=== PATIENT | female | born 1975 | race Caucasian/White ===

== ENCOUNTER → 2016-05-14 | Outpatient (CLI) | payer OTHER ==
[2016-05-14 08:56] LABS: ABSOLUTE EOSINOPHILS # (AUTO) 0.3 10^3/uL (0.0-0.6); ABSOLUTE LYMPHOCYTES (AUTO) 1.5 10^3/uL (0.5-4.7); ABSOLUTE MONOCYTES (AUTO) 0.4 10^3/uL (0.1-1.4); ABSOLUTE NEUT (AUTO) 4.7 10^3/uL (1.7-8.2); BASOPHILS % (AUTO) 0.3 % (0-2); EOSINOPHILS % (AUTO) 4.4 % (0-6); HEMATOCRIT 37.9 % (36.0-47.0); HEMOGLOBIN 12.5 g/dL (12.0-15.5); HGB HCT DIFFERENCE -0.4; LYMPHOCYTES % (AUTO) 21.2 % (13-45); MEAN CORPUSCULAR HEMOGLOBIN 29.2 pg (27.0-33.4); MEAN CORPUSCULAR HGB CONC 32.9 g/dL (32.0-36.0); MEAN CORPUSCULAR VOLUME 89 fl (80-97); MONOCYTES % (AUTO) 6.3 % (3-13); RED BLOOD COUNT 4.27 10^6/uL (3.72-5.28); RED CELL DISTRIBUTION WIDTH 15.1 % (11.5-14.0); SEGMENTED NEUTROPHILS % (AUTO) 67.8 % (42-78); WHITE BLOOD COUNT 6.9 10^3/uL (4.0-10.5)
== END ==
LOC: LAB 08:28
PROVIDERS: ATTEND Specialist
DX: Z01.812 Encounter for preprocedural laboratory examination (principal)
CPT/HCPCS: 36415; 85025

== ENCOUNTER 2016-07-09 08:38 | Day surgery (SDC) | payer OTHER ==
--- NOTE | 2016-07-04 12:43 | HISTORY AND PHYSICAL E ---
History and Physical NAME: AZAM BURNHAM : 1975 AGE: 41Y ADMITTED: 07/09/2016 ROOM: CHIEF COMPLAINT: Eosinophilic esophagitis, dysphagia, and reflux. HISTORY OF PRESENT ILLNESS: Patient is known to me. I saw her back on 05/22/15 regarding dysphagia and reflux. SOCIAL HISTORY: Patient does not smoke. Drinks rarely. PAST SURGICAL HISTORY: 1. Upper scope in 2008, question ulcers. 2. Tonsillectomy. 3. Hip fracture. REVIEW OF SYSTEMS: HEAD, EYES, EARS, NOSE, THROAT: Negative. RESPIRATORY: Negative. CARDIAC: Negative. ENDOCRINE: Negative. GASTROINTESTINAL: Dysphagia, reflux, eosinophilic esophagitis. NEUROLOGIC/PSYCHIATRIC: Anxiety and depression. FAMILY HISTORY: Father is alive and well. Mom is alive and well. PHYSICAL EXAMINATION: VITAL SIGNS: Patient's weight 209. Blood pressure 100/70, pulse 80, respirations 20, temperature is 98. HEAD, EYES, EARS, NOSE, THROAT: Normal. ABDOMEN: Soft. NEUROLOGIC: Negative. MEDICATIONS: 1. Cymbalta. 2. Wellbutrin. 3. Ibuprofen. 4. Naproxen. 5. Fish oil. CONCLUSION: 1. Reflux. 2. Dysphagia. 3. History of eosinophilic esophagitis. PLAN: Endoscopy. Consider dilatation pending endoscopy finding. DICTATING PHYSICIAN: CARLOTA GUZMAN M.D. [id number] [facility]#: [id number] ID: [id number] JOB#: [id number] ACCT: [id number] cc:[facility] CARLOTA GUZMAN M.D. >
--- NOTE | 2016-07-04 12:44 | HISTORY AND PHYSICAL E ---
History and Physical NAME: AZAM BURNHAM : 1975 AGE: 41Y ADMITTED: 07/09/2016 ROOM: CHIEF COMPLAINT: Chest pain, exacerbation of reflux, eosinophilic esophagitis. FAMILY HISTORY: Father is alive; mother is alive. REVIEW OF SYSTEMS: ONCOLOGY/HEMATOLOGY: Negative. NEUROPSYCH: Anxiety. GASTROINTESTINAL: Chest pain, reflux, eosinophilic esophagitis. PHYSICAL EXAMINATION: VITAL SIGNS: Blood pressure 100/70, pulse 80, respirations 18, temperature is 98. HEAD, EYES, EARS, NOSE AND THROAT: Normal. ABDOMEN: Soft. NEUROLOGIC EXAM: Negative. HISTORY OF PRESENT ILLNESS: Upper scope, 06/07/2015, was consistent with classic endoscopy finding of eosinophilic esophagitis. Multiple rings. No definite strictures but diffuse esophageal ring. The patient was difficult to sedate. We gave her Versed 4, fentanyl 200. The biopsy shows the following: She has more than 20 per high-powered field compatible with eosinophilic esophagitis. Sed rate was 21. Conclusion: Exacerbation of dysphagia. PAST SURGICAL HISTORY: Tonsillectomy; cyst in right breast. PAST MEDICAL HISTORY: She does have history of left hip fracture. CONCLUSION: Eosinophilic esophagitis. PLAN: 1. Fluticasone. 2. Upper endoscopy. 3. Possible dilatation. DICTATING PHYSICIAN: CARLOTA GUZMAN M.D. [id number] [id number] PHY#: [id number] ID: [id number] JOB#: [id number] ACCT: [id number] cc:CARLOTA GUZMAN M.D. >
[~2016-07-09 08:38] MED LIST: EPINEPHRINE INJ 1 MG/10 ML DISP.SYRIN ONE; FENTANYL CITRATE INJ/PF 100 MCG/2 ML AMPUL ONE; FLUMAZENIL INJ 0.5 MG/5 ML VIAL IV ONE; GLUCAGON,HUMAN RECOMB 1 MG INJ ONE; GLYCOPYRROLATE INJ 0.4 MG/2 ML VIAL ONE; NALOXONE HCL INJ/PF 0.4 MG/1 ML SDV ONE; ONDANSETRON HCL INJ/PF 4 MG/2 ML SDV ONE
[2016-07-09] MEDS: MIDAZOLAM 2 MG/2 ML INJ ONE ×2 (09:28→09:35)
[2016-07-09 10:51] VITALS: BP 99/67
[2016-07-09 10:59] LABS: ABSOLUTE BASOPHILS # (AUTO) 0.1 10^3/uL (0.0-0.2); ABSOLUTE EOSINOPHILS # (AUTO) 0.7 10^3/uL (0.0-0.6); ABSOLUTE MONOCYTES (AUTO) 0.5 10^3/uL (0.1-1.4); ABSOLUTE NEUT (AUTO) 4.5 10^3/uL (1.7-8.2); BASOPHILS % (AUTO) 1.3 % (0-2); HEMATOCRIT 36.2 % (36.0-47.0); HEMOGLOBIN 12.3 g/dL (12.0-15.5); HGB HCT DIFFERENCE 0.7; MEAN CORPUSCULAR HEMOGLOBIN 30.3 pg (27.0-33.4); MEAN CORPUSCULAR HGB CONC 34.1 g/dL (32.0-36.0); MEAN CORPUSCULAR VOLUME 89 fl (80-97); MONOCYTES % (AUTO) 6.7 % (3-13); RED BLOOD COUNT 4.06 10^6/uL (3.72-5.28); RED CELL DISTRIBUTION WIDTH 14.5 % (11.5-14.0); WHITE BLOOD COUNT 7.8 10^3/uL (4.0-10.5)
[2016-07-09 11:24] LABS: ALANINE AMINOTRANSFERASE 33 U/L (9-52); ALBUMIN 4.2 g/dL (3.5-5.0); ALKALINE PHOSPHATASE 70 U/L (38-126); AMYLASE 36 U/L (30-110); ANION GAP 11 (5-19); ASPARTATE AMINO TRANSFERASE 17 U/L (14-36); BILIRUBIN,DIRECT 0.1 mg/dL (0.0-0.4); BILIRUBIN,TOTAL 0.4 mg/dL (0.2-1.3); BLOOD UREA NITROGEN 15 mg/dL (7-20); C-REACTIVE PROTEIN 12.3 mg/L (<10.0); CALCIUM 9.1 mg/dL (8.4-10.2); CARBON DIOXIDE 28 mmol/L (22-30); CHLORIDE 101 mmol/L (98-107); CREATININE RESULT 0.94 mg/dL (0.52-1.25); GLUCOSE 95 mg/dL (75-110); LIPASE 32.7 U/L (23-300); POTASSIUM 4.6 mmol/L (3.6-5.0); TOTAL PROTEIN 6.8 g/dL (6.3-8.2)
[2016-07-09 11:39] LABS: ERYTHROCYTE SEDIMENTATION RATE 17 mm/hr (0-20)
--- NOTE | 2016-07-09 14:56 | DISCHARGE SUMMARY E ---
Discharge Summary NAME: AZAM BURNHAM : 1975 AGE: 41Y ADMITTED: 07/09/2016 DISCHARGED: 07/09/2016 PROCEDURE: 1. EGD. 2. Biopsy. HISTORY AND HOSPITAL COURSE: Patient is 41 years old. I saw her last year in May and she did have eosinophilic esophagitis. She saw utilization review nurse and had seen her recently. She presented to the ER with dysphagia and she is being presented for further evaluation. FINDINGS: Upper scope shows no malignancy. Classic eosinophilic esophagitis with diffuse trabeculation, short esophagus. No definite stricture. Moderate duodenitis. DISCHARGE PLAN: 1. Continue fluticasone inhaler 440 mcg twice daily. 2. Nexium. 3. Discussed diet. 4. Patient saw utilization review nurse. She is to instruct her on foods to avoid in diet, especially the tree nuts, peanuts, and seafood, shells, eggs, and milk. 5. Full liquids. 6. Awaiting biopsy. 7. Followup office visit in the next few days. 8. Activity: Avoid driving today. DICTATING PHYSICIAN: CARLOTA GUZMAN M.D. 1265M 1003 PHY#: [id number] ID: [id number] JOB#: [id number] ACCT: [id number] cc:[facility] CARLOTA GUZMAN M.D. >
--- NOTE | 2016-07-09 16:40 | OPERATIVE REPORT E ---
Operative Report NAME: AZAM BURNHAM : 1975 AGE: 41Y DATE OF SURGERY: 07/09/2016 ROOM: PREOPERATIVE DIAGNOSIS: EOSINOPHILIC ESOPHAGITIS. POSTOPERATIVE DIAGNOSES: 1. EOSINOPHILIC ESOPHAGITIS. 2. DUODENITIS. OPERATION: 1. Esophagoscopy. 2. Gastroscopy. 3. Duodenoscopy. SURGEON: CARLOTA GUZMAN M.D. ANESTHESIA: Sedation, Versed 4, fentanyl 100. TISSUE REMOVED OR ALTERED: Esophageal biopsy. PROCEDURE: Baby scope passed under guided vision no difficulties. There was no definite stricture, but the classic endoscopy sign of eosinophilic esophagitis that is trachealization, multiple rings, burrows all present consistent with diffuse eosinophilic esophagitis with no definite stricture. Scope passed from the EUS to the GE junction with no difficulty and diffuse trachealization. Furrows. Biopsy shows sign of eosinophilic esophagitis "TUG." Gastroscopy, no ulcers, mild gastritis. Duodenoscopy; moderate duodenitis. CONCLUSIONS: Eosinophilic esophagitis. Patient tolerated the procedure well and discharged to her room in stable condition. PLAN: Full-liquid diet, hold aspirin. Continue Nexium. Continue fluticasone inhaler to swallow 440 mcg twice daily. DICTATING PHYSICIAN: CARLOTA GUZMAN M.D. [address]M [id number] [facility]#: [id number] ID: [id number] JOB#: [id number] ACCT: [id number] cc:[facility] CARLOTA GUZMAN M.D. >
== END 2016-07-09 10:55 | disposition home or self-care (01) ==
LOC: END 08:38
PROVIDERS: ATTEND Specialist
PROC: 0DB58ZX Excision of Esophagus, Via Natural or Artificial Opening Endoscopic, Diagnostic (ICD-10-PCS; principal; 2016-07-09 09:00)
DX: K20.0 Eosinophilic esophagitis (principal); K29.80 Duodenitis without bleeding; K29.70 Gastritis, unspecified, without bleeding; K21.9 Gastro-esophageal reflux disease without esophagitis; Z79.899 Other long term (current) drug therapy; Z79.1 Long term (current) use of non-steroidal anti-inflammatories (NSAID)
CPT/HCPCS: 43239; 36415; 82150; 83690; 85025; 85652; 86140; 80053; 88305 ×2; J2250; J3010; J2405; J0171; J1610; J2310; J3490

== ENCOUNTER 2016-12-21 04:36 | Inpatient (IN) | payer OTHER ==
[2016-12-21] MEDS ORDERED: NORMAL SALINE 1000 ML 1,000 ML IV ONE ×2 (04:57→08:07)
[2016-12-21] MEDS ORDERED: ONDANSETRON HCL INJ/PF 4 MG/2 ML SDV IV ONE ×2 (04:58→08:48)
[2016-12-21] MEDS ORDERED: FENTANYL CITRATE INJ/PF 100 MCG/2 ML AMPUL IV ONE (04:58)
--- NOTE | 2016-12-21 04:59 | ER Document Report ---
ED GI/ - General TRAVEL OUTSIDE OF THE [place] IN LAST 30 DAYS: No <CLAU OSORIO - Last Filed: 12/21/16 07:03> <LEIGHTON COLMENARES - Last Filed: 12/21/16 08:09> - General Chief Complaint: Abdominal Pain Stated Complaint: ABDOMINAL PAIN Time Seen by Provider: 12/21/16 04:49 Notes: Patient is a 41-year-old female who comes emergency department for chief complaint of worsening abdominal pain that started this evening, she states she is actually starting to feel it in her lower abdomen. She states that she has not had vomiting but she feels nauseated and she is starting to hurt all over. She denies flank pain, vaginal bleeding or discharge, dysuria. Past medical history of cholecystectomy, she states that after the cholecystectomy she had an ERCP which caused secondary pancreatitis, she states that she ended up with a kidney blockage as well and has a kidney stent. These were all done at [facility]. She is on Flomax, gabapentin, OxyContin. She denies any other medical history. LMP 1 month ago. (CLAU OSORIO) - Related Data Allergies/Adverse Reactions: typhoid vaccine [Typhoid Vaccine] Allergy (Intermediate, Verified 12/21/16 04:39 ) Facial edema and rash Past Medical History - General Information source: Patient - Social History Smoking Status: Never Smoker Frequency of alcohol use: None Drug Abuse: None Lives with: Family Family History: Reviewed & Not Pertinent - Past Medical History Cardiac Medical History: Denies: Hx Coronary Artery Disease, Hx Heart Attack, Hx Hypertension - RUNS LOW Pulmonary Medical History: Denies: Hx Asthma, Hx Bronchitis, Hx COPD, Hx Pneumonia Neurological Medical History: Denies: Hx Cerebrovascular Accident, Hx Seizures Renal/ Medical History: Denies: Hx Peritoneal Dialysis Musculoskeltal Medical History: Denies Hx Arthritis Past Surgical History: Reports: Hx Cholecystectomy, Hx Genitourinary Surgery - right kidneys stent. Denies: Hx Hysterectomy - Immunizations Hx Diphtheria, Pertussis, Tetanus Vaccination: Yes <CLAU OSORIO - Last Filed: 12/21/16 07:03> Review of Systems - Review of Systems Constitutional: No symptoms reported EENT: No symptoms reported Cardiovascular: No symptoms reported Respiratory: No symptoms reported Gastrointestinal: See HPI Genitourinary: See HPI Female Genitourinary: No symptoms reported Musculoskeletal: No symptoms reported Skin: No symptoms reported Hematologic/Lymphatic: No symptoms reported Neurological/Psychological: No symptoms reported <CLAU OSORIO - Last Filed: 12/21/16 07:03> Physical Exam - Vital signs Interpretation: Normal - General General appearance: Alert, Anxious In distress: Mild - Patient appears to be in pain and is generally unwell appearing - HEENT Head: Normocephalic, Atraumatic Eyes: Normal Pupils: PERRL - Respiratory Respiratory status: No respiratory distress Chest status: Nontender Breath sounds: Normal. No: Decreased air movement, Wheezing Chest palpation: Normal - Cardiovascular Rhythm: Regular Heart sounds: Normal auscultation Murmur: No - Abdominal Inspection: Normal Distension: No distension Bowel sounds: Normal Tenderness: Tender - Mild tenderness in the upper abdomen generally, much more significantly tender in the right mid to lower abdomen and at McBurney's point, McBurney's point Organomegaly: No organomegaly - Back Back: Tender, CVA tenderness - Mild CVA tenderness on the right side - Extremities General upper extremity: Normal inspection, Nontender, Normal color, Normal ROM , Normal temperature General lower extremity: Normal inspection, Nontender, Normal color, Normal ROM , Normal temperature, Normal weight bearing. No: Sav's sign - Neurological Neuro grossly intact: Yes Cognition: Normal Orientation: AAOx4 [place] Coma Scale Eye Opening: Spontaneous [place] Coma Scale Verbal: Oriented [place] Coma Scale Motor: Obeys Commands [place] Coma Scale Total: 15 Speech: Normal Motor strength normal: LUE, RUE, LLE, RLE Sensory: Normal - Skin Skin Temperature: Warm Skin Moisture: Dry Skin Color: Normal <CLAU OSORIO - Last Filed: 12/21/16 07:03> - Vital signs Vitals: Resp Pulse Ox 16 99 12/21/16 05:08 12/21/16 05:08 Course - Laboratory Result Diagrams: 12/21/16 05:13 12/21/16 05:13 <CLAU OSORIO - Last Filed: 12/21/16 07:03> - Laboratory Result Diagrams: 12/21/16 05:13 12/21/16 05:13 <LEIGHTON COLMENARES - Last Filed: 12/21/16 08:09> - Re-evaluation Re-evalutation: Patient appears to be significantly uncomfortable on initial exam, she does have what appears to be mild right CVA tenderness, she has tenderness in the upper abdomen generally, she has significant tenderness in the right lower abdomen on examination at McBurney's point. Patient is much more comfortable after pain medication and IV fluids, CAT scan pending. CBC unremarkable, chemistry unremarkable, urinalysis indicates urinary tract infection, most likely pyelonephritis in setting of kidney stent. Giving Rocephin, urine culture sent. Pain coming back, patient re-medicated. She states her blood pressure is always borderline low. Will monitor. Disposition will be based on cat scan and contacting Urology at [facility]. Confirmed and discussed with Dr. Aldridge. (CLAU OSORIO) 12/21/16 07:58 CT shows appendeceal abscess, dr. martinez will see and admit the pt. Explained this to pt, she is up to bathroom. She did say that this pain has been intermittent for several days, the pain rx would help, but worse last night. (LEIGHTON COLMENARES) - Vital Signs Vital signs: Temp Pulse Resp BP Pulse Ox 15 98/61 L 97 12/21/16 07:01 12/21/16 07:01 12/21/16 07:01 - Laboratory Laboratory results interpreted by me: 12/21/16 12/21/16 12/21/16 04:43 05:13 05:13 Hgb 11.5 L Hct 33.4 L RDW 14.4 H Seg Neutrophils % 79.2 H Lymphocytes % 12.7 L Total Protein 6.2 L Urine Blood MODERATE H Ur Leukocyte Esterase LARGE H Discharge <CLAU OSORIO - Last Filed: 12/21/16 07:03> - Discharge Admitting Provider: Surgicalist <LEIGHTON COLMENARES - Last Filed: 12/21/16 08:09> - Discharge Clinical Impression: acute appendeceal abscess Condition: Stable Disposition: ADMITTED INPATIENT
[2016-12-21 05:22] LABS: AMORPHOUS SEDIMENT,URINE 1+ /HPF; APPEARANCE,URINE CLOUDY; BILIRUBIN,URINE NEGATIVE (NEGATIVE); GLUCOSE, URINE NEGATIVE (NEGATIVE); KETONES,URINE NEGATIVE (NEGATIVE); LEUKOCYTE ESTERASE,URINE LARGE (NEGATIVE); NITRITE,URINE NEGATIVE (NEGATIVE); PROTEIN,URINE NEGATIVE (NEGATIVE); URINE SPECIFIC GRAVITY 1.006; UROBILINOGEN,URINE NEGATIVE mg/dL (<2.0)
[2016-12-21 05:25] LABS: ABSOLUTE BASOPHILS # (AUTO) 0.1 10^3/uL (0.0-0.2); ABSOLUTE EOSINOPHILS # (AUTO) 0.2 10^3/uL (0.0-0.6); ABSOLUTE LYMPHOCYTES (AUTO) 1.2 10^3/uL (0.5-4.7); ABSOLUTE MONOCYTES (AUTO) 0.5 10^3/uL (0.1-1.4); ABSOLUTE NEUT (AUTO) 7.6 10^3/uL (1.7-8.2); BASOPHILS % (AUTO) 0.8 % (0-2); HEMATOCRIT 33.4 % (36.0-47.0); HEMOGLOBIN 11.5 g/dL (12.0-15.5); HGB HCT DIFFERENCE 1.1; LYMPHOCYTES % (AUTO) 12.7 % (13-45); MEAN CORPUSCULAR HEMOGLOBIN 29.6 pg (27.0-33.4); MEAN CORPUSCULAR HGB CONC 34.4 g/dL (32.0-36.0); MEAN CORPUSCULAR VOLUME 86 fl (80-97); MONOCYTES % (AUTO) 5.3 % (3-13); RED BLOOD COUNT 3.88 10^6/uL (3.72-5.28); RED CELL DISTRIBUTION WIDTH 14.4 % (11.5-14.0); SEGMENTED NEUTROPHILS % (AUTO) 79.2 % (42-78); WHITE BLOOD COUNT 9.5 10^3/uL (4.0-10.5)
[2016-12-21 05:36] LABS: ALANINE AMINOTRANSFERASE 37 U/L (9-52); ALBUMIN 3.8 g/dL (3.5-5.0); ALKALINE PHOSPHATASE 87 U/L (38-126); ANION GAP 11 (5-19); ASPARTATE AMINO TRANSFERASE 17 U/L (14-36); BILIRUBIN,DIRECT 0.3 mg/dL (0.0-0.4); BILIRUBIN,TOTAL 0.3 mg/dL (0.2-1.3); BLOOD UREA NITROGEN 12 mg/dL (7-20); CALCIUM 9.3 mg/dL (8.4-10.2); CARBON DIOXIDE 29 mmol/L (22-30); CHLORIDE 103 mmol/L (98-107); CREATININE RESULT 0.65 mg/dL (0.52-1.25); GLUCOSE 101 mg/dL (75-110); LIPASE 62.5 U/L (23-300); POTASSIUM 4.2 mmol/L (3.6-5.0); SODIUM 142.6 mmol/L (137-145); TOTAL PROTEIN 6.2 g/dL (6.3-8.2)
[2016-12-21] MEDS ORDERED: HYDROMORPHONE HCL INJ/PF 2 MG/ML AMPULE IV ONE ×3 (05:55→08:48)
[2016-12-21] MEDS ORDERED: CEFTRIAXONE 1 GM/D5W RTU 1 GM/50 ML RTUPB IV ONE (05:55)
--- NOTE | 2016-12-21 07:52 | RADIOLOGY REPORT (SQ) ---
EXAMINATION: POSTCONTRAST ABDOMEN AND PELVIC CT EXAMINATION. REFERRAL DIAGNOSIS: Lower quadrant abdominal pain. COMPARISONS: None PROCEDURE: Using low-dose helical technique, thin section axial images were performed through the abdomen and pelvis after the uncomplicated intravenous administration of nonionic iodinated contrast material. Creatinine equals 0.65. FINDINGS: Right ureteral stent appears in appropriate position. Delayed enhancement and moderate to severe right hydronephrosis. Unenhanced urinary bladder contour is normal. Left kidney is normal. Inflammation in the right lower abdominal quadrant adjacent to the cecum with the abscess cavity measuring 4.9 cm x 4.2 cm in greatest transverse dimension and 8.4 cm in greatest coronal dimension. Suspect this represents appendiceal abscess. No bowel obstruction or extraluminal bowel gas. Sequela of remote cholecystectomy. The liver, spleen, pancreas, stomach, duodenum, adrenal glands and great vessels are normal. Bones are normal. Uterus and ovaries appear grossly normal. IMPRESSION: 1. Inflammation in the right lower abdominal quadrant adjacent to cecum with adjacent large abscess as described above. Suspect this presents sequela of acute appendicitis. 2. Right ureteral stent appears in appropriate position. Findings of partial right urinary system obstruction.
[2016-12-21] MEDS: METRONIDAZOLE 500 MG/NS RTU 100 ML IV SCH ×3 (08:49→23:02)
--- NOTE | 2016-12-21 09:04 | PDOC H&P ---
History of Present Illness Admission Date/PCP: 12/21/16 08:17 Patient complains of: Right lower quadrant pains worse last night associated with nausea History of Present Illness: AZAM BURNHAM is a 41 year old female with history of laparoscopic cholecystectomy in July at the [facility]. Subsequently developed pancreatitis due to common bile duct stone and was at the [facility] in August for 3 weeks. She claims that they tried to drain pancreatic abscess but was unable to do so. Patient has been having off and on abdominal pains for the past several weeks. She is also being followed at the [facility] and she mentions that they will find her on interventional radiologist Last night she complained of severe right lower quadrant pains associated with nausea and went to the emergency room. CT scan of the abdomen revealed a an 8 x 4 x 4.9 x 4.2 cm possible appendiceal abscess. Past Medical History Past Medical History: At the [facility] pancreatitis and had an ERCP and followed by pancreatitis and stayed in the [facility] for 3 weeks in August after a laparoscopic cholecystectomy in July Cardiac Medical History: Denies: Coronary Artery Disease, Myocardial Infarction, Hypertension - RUNS LOW Pulmonary Medical History: Denies: Asthma, Bronchitis, Chronic Obstructive Pulmonary Disease (COPD), Pneumonia Neurological Medical History: Denies: Seizures Endocrine Medical History: Denies: Diabetes Mellitus Type 1, Diabetes Mellitus Type 2 Renal/ Medical History: Denies: End Stage Renal Disease Musculoskeltal Medical History: Denies: Arthritis Hematology: Denies: Anemia Past Surgical History Past Surgical History: Reports: Cholecystectomy, Other - Laparoscopic cholecystectomy in July of this year at the [facility] Denies: Hysterectomy Social History Lives with: Family Smoking Status: Never Smoker Frequency of Alcohol Use: Rare Hx Recreational Drug Use: No - Advance Directive Resuscitation Status: Full Code Family History Family History: Reviewed & Not Pertinent Parental Family History Reviewed: Yes - Unremarkable Children Family History Reviewed: No Sibling(s) Family History Reviewed.: No Medication/Allergy Home Medications: Bupropion HCl [Wellbutrin Xl 300mg 24hr Tablet] 1 tab PO DAILY 06/06/15 Multivit-Min/Iron Fum/Folic AC [Mvdge-Qauhezt-Tsmdyhbo Tablet] 1 each PO ASDIR 06/06/15 Esomeprazole Magnesium [Nexium] 40 mg PO BID 06/07/15 Fluoxetine HCl [Prozac] 80 mg PO DAILY 07/07/16 Allergies/Adverse Reactions: typhoid vaccine [Typhoid Vaccine] Allergy (Intermediate, Verified 12/21/16 04:39 ) Facial edema and rash Review of Systems Constitutional: PRESENT: headache(s) Eyes: PRESENT: other - Denies visual disturbances Ears: PRESENT: other - Denies hearing changes Nose, Mouth, and Throat: PRESENT: other Cardiovascular: PRESENT: other - No chest pains Respiratory: PRESENT: other - No shortness of breath Gastrointestinal: PRESENT: other - No vomiting no diarrhea nor constipation Genitourinary: PRESENT: other - No dysuria Musculoskeletal: PRESENT: other - No joint pains Integumentary: PRESENT: other - No skin rash Neurological: PRESENT: other - No seizures no syncopal episode Psychiatric: PRESENT: anxiety Endocrine: PRESENT: other - No polyuria or polydipsia Hematologic/Lymphatic: PRESENT: other - No easy bruisability or lymph node enlargement Physical Exam Vital Signs: Temp Pulse Resp BP Pulse Ox 15 98/61 L 97 12/21/16 07:01 12/21/16 07:01 12/21/16 07:01 General appearance: PRESENT: mild distress Head exam: PRESENT: atraumatic, normocephalic Eye exam: PRESENT: conjunctiva pink Ear exam: PRESENT: normal external ear exam Mouth exam: PRESENT: moist, tongue midline Neck exam: PRESENT: other - Trachea midline Respiratory exam: PRESENT: clear to auscultation ryan Cardiovascular exam: PRESENT: RRR Pulses: PRESENT: normal femoral pulses Vascular exam: PRESENT: normal capillary refill GI/Abdominal exam: PRESENT: soft, tenderness - Tenderness at the right lower quadrant area Rectal exam: PRESENT: deferred Extremities exam: PRESENT: full ROM Musculoskeletal exam: PRESENT: full ROM Neurological exam: PRESENT: alert, oriented to person, oriented to place, oriented to time, oriented to situation, CN II-XII grossly intact Psychiatric exam: PRESENT: appropriate affect Skin exam: PRESENT: dry, normal color, warm Results Laboratory Results: Normal white count Impressions: Abdomen/Pelvis CT 12/21/16 00:00 IMPRESSION: 1. Inflammation in the right lower abdominal quadrant adjacent to cecum with adjacent large abscess as described above. Suspect this presents sequela of acute appendicitis. 2. Right ureteral stent appears in appropriate position. Findings of partial right urinary system obstruction. Assessment & Plan - Time Time Spent: 30 to 50 Minutes - Inpatient Certification Medical Necessity: Need For IV Fluids, Need for Pain Control, Need for IV Antibiotics, Risk of Complication if Not Cared For in Hospital, Risk of Diagnosis Which Will Require Inpatient Eval/Care/Monitoring, Other - We will need percutaneous drainage of abscess - Plan Summary Plan Summary: #1 start IV antibiotics 2. Keep n.p.o. and hydrate 3. Arrangements being made for percutaneous drainage of a large right lower quadrant abscess presumed to be appendiceal
[2016-12-21] MEDS ORDERED: NORMAL SALINE 1000 ML 500 ML IV ONE (09:07)
[2016-12-21] MEDS ORDERED: DEXTROSE 50%-WATER 25 GM/50 ML DISP.SYRIN IV PRN ×2 (09:54)
[2016-12-21] MEDS ORDERED: DEXTROSE 40% GEL 15 GM TUBE PO PRN ×2 (09:54)
[2016-12-21] MEDS ORDERED: GLUCAGON,HUMAN RECOMB 1 MG INJ SUBCUT PRN (09:54)
[2016-12-21 10:05] LABS: PARTIAL THROMBOPLASTIN TIME 29.2 SEC (23.5-35.8); PROTHROMBIN TIME 13.8 SEC (11.4-15.4)
[2016-12-21] MEDS ORDERED: MIDAZOLAM 2 MG/2 ML INJ ONE (10:57)
[2016-12-21] MEDS ORDERED: FENTANYL CITRATE INJ/PF 100 MCG/2 ML AMPUL ONE ×2 (10:57→11:16)
[2016-12-21] MEDS ORDERED: LIDOCAINE 1% INJ-PF (10 MG/ML) 30 ML SDV ONE (11:43)
[2016-12-21] MEDS ORDERED: HYDROMORPHONE HCL INJ/PF 2 MG/ML AMPULE ONE (13:04)
[2016-12-21] MEDS: PIPERACILLIN SODIUM/TAZOBACTAM 3.375 GM in NORMAL SALINE 100 ML IV SCH ×2 (13:48→18:29)
[2016-12-21] MEDS ORDERED: HYDROMORPHONE HCL INJ/PF 2 MG/ML AMPULE IV PRN (13:49)
[2016-12-21] MEDS: ACETAMINOPHEN 325 MG TABLET PO PRN (19:09)
[2016-12-21] MEDS: HYDROMORPHONE HCL INJ/PF 2 MG/ML AMPULE IV PRN (21:20)
[2016-12-21] MEDS: KETOROLAC TROMETHAMINE INJ/PF 30 MG/1 ML SDV IV SCH (21:20)
[2016-12-22] MEDS: PIPERACILLIN SODIUM/TAZOBACTAM 3.375 GM in NORMAL SALINE 100 ML IV SCH ×5 (00:33→23:36)
[2016-12-22] MEDS: NORMAL SALINE 1000 ML 1,000 ML IV PRN ×2 (00:34→19:37)
[2016-12-22] MEDS: HYDROMORPHONE HCL INJ/PF 2 MG/ML AMPULE IV PRN ×4 (00:43→11:32)
[2016-12-22] MEDS: ACETAMINOPHEN 325 MG TABLET PO PRN (03:35)
[2016-12-22] MEDS: METRONIDAZOLE 500 MG/NS RTU 100 ML IV SCH (05:01)
[2016-12-22] MEDS: KETOROLAC TROMETHAMINE INJ/PF 30 MG/1 ML SDV IV SCH ×3 (06:07→22:03)
[2016-12-22 06:32] LABS: ABSOLUTE BASOPHILS # (AUTO) 0.1 10^3/uL (0.0-0.2); ABSOLUTE EOSINOPHILS # (AUTO) 0.2 10^3/uL (0.0-0.6); ABSOLUTE LYMPHOCYTES (AUTO) 1.1 10^3/uL (0.5-4.7); ABSOLUTE MONOCYTES (AUTO) 0.4 10^3/uL (0.1-1.4); ABSOLUTE NEUT (AUTO) 3.8 10^3/uL (1.7-8.2); BASOPHILS % (AUTO) 0.9 % (0-2); EOSINOPHILS % (AUTO) 2.8 % (0-6); HEMOGLOBIN 9.5 g/dL (12.0-15.5); HGB HCT DIFFERENCE 0.5; LYMPHOCYTES % (AUTO) 19.9 % (13-45); MEAN CORPUSCULAR HEMOGLOBIN 29.7 pg (27.0-33.4); MEAN CORPUSCULAR VOLUME 87 fl (80-97); MONOCYTES % (AUTO) 7.3 % (3-13); RED BLOOD COUNT 3.22 10^6/uL (3.72-5.28); SEGMENTED NEUTROPHILS % (AUTO) 69.1 % (42-78); WHITE BLOOD COUNT 5.6 10^3/uL (4.0-10.5)
[2016-12-22 06:45] LABS: ALANINE AMINOTRANSFERASE 57 U/L (9-52); ALBUMIN 2.7 g/dL (3.5-5.0); ALKALINE PHOSPHATASE 80 U/L (38-126); ANION GAP 8 (5-19); ASPARTATE AMINO TRANSFERASE 42 U/L (14-36); BILIRUBIN,DIRECT 0.3 mg/dL (0.0-0.4); BILIRUBIN,TOTAL 0.3 mg/dL (0.2-1.3); BLOOD UREA NITROGEN 10 mg/dL (7-20); CARBON DIOXIDE 26 mmol/L (22-30); CHLORIDE 108 mmol/L (98-107); CREATININE RESULT 0.63 mg/dL (0.52-1.25); GLUCOSE 90 mg/dL (75-110); LIPASE 29.4 U/L (23-300); POTASSIUM 3.9 mmol/L (3.6-5.0); SODIUM 141.5 mmol/L (137-145); TOTAL PROTEIN 4.8 g/dL (6.3-8.2)
[2016-12-22 06:47] LABS: AMYLASE < 30 U/L (30-110)
[2016-12-22] MEDS: ONDANSETRON HCL INJ/PF 4 MG/2 ML SDV IV PRN (08:40)
--- NOTE | 2016-12-22 09:28 | PDOC PROGRESS REPORT ---
Subjective Progress Note for:: 12/22/16 Subjective:: According to the patient she has been dealing with pain since July 2016 after laparoscopic cholecystectomy, complicated by retained common bile duct stone, status post ERCP complicated by postprocedure pancreatitis. Apparently she had a ureteral stent placed on the right side for unclear reasons. Been followed by general surgery and urology at [facility]. She was slated to see a surgeon at [address] regarding management of pancreatic pseudocyst which is been followed radiographically according to patient report. The patient came to the emergency department yesterday because of pain. She denies nausea vomiting or change in her bowel habits recently. She is now having some loose stools. Been off antibiotics. She denies fever. Imaging studies on admission yesterday showed a right oriented fluid collection which underwent percutaneous drainage with evacuation approximately 40 cc of prescription old bloody fluid. Fluid sent for culture, Gram stain and sensitivity. Drainage minimal at this time. Patient's pain complex is about the same. She has been on narcotics for the last 5 months continuously. Physical Exam Vital Signs: Temp Pulse Resp BP Pulse Ox 98.4 F 48 L 15 95/56 L 98 12/22/16 08:35 12/22/16 08:35 12/22/16 08:35 12/22/16 08:35 12/22/16 08:35 Intake & Output 12/21/16 12/22/16 12/23/16 06:59 06:59 06:59 Intake Total 1525 Output Total 1700 Balance -175 General appearance: PRESENT: other - Very sleepy GI/Abdominal exam: PRESENT: other - Abdomen is soft not distended. Percutaneous drain entering the abdomen anteriorly appears to be in satisfactory position Results Laboratory Results: 12/22/16 06:14 12/22/16 06:14 12/22/16 12/22/16 06:14 06:14 WBC 5.6 RBC 3.22 L Hgb 9.5 L Hct 28.0 L MCV 87 MCH 29.7 MCHC 34.0 RDW 15.0 H Plt Count 181 Seg Neutrophils % 69.1 Lymphocytes % 19.9 Monocytes % 7.3 Eosinophils % 2.8 Basophils % 0.9 Absolute Neutrophils 3.8 Absolute Lymphocytes 1.1 Absolute Monocytes 0.4 Absolute Eosinophils 0.2 Absolute Basophils 0.1 Sodium 141.5 Potassium 3.9 Chloride 108 H Carbon Dioxide 26 Anion Gap 8 BUN 10 Creatinine 0.63 Est GFR ( Amer) > 60 Est GFR (Non-Af Amer) > 60 Glucose 90 Calcium 8.0 L Total Bilirubin 0.3 AST 42 H ALT 57 H Alkaline Phosphatase 80 Total Protein 4.8 L Albumin 2.7 L Amylase < 30 L Lipase 29.4 Impressions: Abdomen/Pelvis CT 12/21/16 00:00 IMPRESSION: 1. Inflammation in the right lower abdominal quadrant adjacent to cecum with adjacent large abscess as described above. Suspect this presents sequela of acute appendicitis. 2. Right ureteral stent appears in appropriate position. Findings of partial right urinary system obstruction. Surgeon's note: I reviewed the images independently and in conjunction with Dr. Barajas, radiologist. The patient now has [address] 1 chronic right renal stent which appears to be in satisfactory position with mild hydroureter; now patient has a tense abdominal drain described above. Some of the sideholes are out of the fluid cavity. This is a thin-walled cystic collection. No oral or IV contrast in it. There is no evidence of intestinal obstruction. Assessment & Plan - Diagnosis (1) Intra-abdominal fluid collection Is this a current diagnosis for this admission?: Yes Plan: The impression today is the patient has a chronic fluid collection drained percutaneously with serologies and microbiology pending. Patient's history of post ERCP pancreatitis with cyst formation, believe the currently draining fluid collection may in fact be residual pseudocyst. Clinically the collection does not appear to be related to the cecum or ascending colon. Plan: 1. Start patient on a diet, stool softener 2. As the patient does not appear septic, will wean antibiotics off; we are stopping Flagyl today 3. Patient is narcotic dependent; we will solicit consultation from pain management colleagues 4. I spoke with Dr. Barajas, radiologist regarding drain management. Pending culture and results of the fluid collection, if no contraindications, a pull the drain tomorrow.
[2016-12-22] MEDS: DOCUSATE SODIUM 100 MG CAPSULE PO SCH ×2 (11:18→18:48)
[2016-12-22] MEDS ORDERED: HYDROMORPHONE HCL INJ/PF 2 MG/ML AMPULE IV ONE (13:30)
[2016-12-22] MEDS: HYDROMORPHONE HCL 2 MG TABLET PO PRN ×2 (14:39→19:34)
--- NOTE | 2016-12-22 15:03 | CONSULTATION REPORT E ---
Consultation Report NAME: AZAM BURNHAM : 1975 AGE: 41Y DATE: 12/22/2016 213 B TO: AUREA WEEKS M.D. FROM: MAHNAZ SAMUELS Requesting Physician Consultation request by Dr. Valdivia, general surgery. REASON FOR CONSULTATION: Narcotic dependency, [id number] abdominal pain on presentation. CHIEF COMPLAINT: Right lower quadrant pain. HISTORY OF PRESENT ILLNESS: The patient is a 41-rhonda-old female with prior history of laparoscopic cholecystectomy back in July of 2016 at the [facility] who subsequently developed pancreatitis secondary to common bile duct stone impaction and was hospitalized for weeks during August. Patient notes that she has had chronic abdominal pain ever since and has been told that she has a pancreatic abscess that needed to be drained. She has been having on and off abdominal pain for the past several weeks and is currently under pain management with [facility] with Dr. Daniels. She is on chronic opioid therapy through her pain clinic along with multimodal analgesia with gabapentin and NSAIDs and standing Tylenol. She is on 30 mg of OxyContin b.i.d. and recently received a breakthrough pain medication script on December 12 per the database for hydromorphone 2 mg 4-6 hours p.r.n. acute pain. With regards to her workup for her pancreatic pseudocyst, she was scheduled to be seen by a surgeon in [place] but on 12/20/16, she started having severe right lower quadrant pain with nausea and presented to the [place] [facility]. She had a CT scan revealing a possible appendiceal abscess and a drain was placed on 12/21/16. Patient notes minor improvement in her new right lower quadrant pain, status post exacerbation but persistent chronic right lower quadrant abdominal pain diffuse with no specific trigger, dull and achy at times. Improved with pain medication. Patient denies any side effects from her opioid such as nausea, vomiting, itching, constipation, or sedation. She states that she has not had her long acting medication since Thursday and feels that the IV medication is not appropriately covering her pain as she is behind on her pain control. She states that she is uncertain what her next surgical step is. She notes prior relief with the hydromorphone p.r.n. for acute exacerbation. She denies any history of illicit drug use. PAST MEDICAL HISTORY: Of note, gallstone pancreatitis, status post laparoscopic cholecystectomy. PAST SURGICAL HISTORY: Above, cholecystectomy. SOCIAL HISTORY: Denies smoking. Denies alcohol. Denies illicits. FAMILY HISTORY: Noncontributory. MEDICATIONS: At home she is on gabapentin for pain medication 300 mg in the morning and 600 mg at night. She has been on and off Celebrex. She is on OxyContin 30 mg p.o. b.i.d. She is on Tylenol 975 mg q.8 hours. She notes Prozac as well 80 mg p.o. daily and omeprazole 40 mg p.o. b.i.d. Bupropion 300 mg 1 tab daily. ALLERGIES: TYPHOID VACCINE. REVIEW OF SYSTEMS: Otherwise unchanged from history and physical from Dr. Schuyler Kendrick on 12/21/16 and confirmed with patient. PHYSICAL EXAMINATION: GENERAL APPEARANCE: Resting, lying in bed in no distress. HEAD: Normocephalic, atraumatic. ORAL: Tongue midline. Oral mucosa wet. NECK: Supple. RESPIRATORY: Clear to auscultation bilaterally. CARDIOVASCULAR: Regular rate and rhythm. ABDOMEN: Mild, soft, tenderness in the right lower quadrant area. Drain in place. No rebound tenderness. EXTREMITIES: Warm and well perfused with full range of motion. NEUROLOGIC: Alert and oriented x3. Cranial nerves II-XII intact grossly intact. Moving all extremities x4. PSYCHIATRIC: Appropriate affect and mood. DIAGNOSTIC DATA: Results pending, drainage with drain placement gram stain and culture pending. Abdominal/pelvic CT per H and P showing inflammation of the right lower quadrant. ASSESSMENT: 1. [id number] exacerbation of right lower quadrant abdominal pain. 2. Chronic pain syndrome. 3. Opioid dependence. PLAN: 1. We will continue Tylenol 650 mg p.r.n. 4 hours pain. 2. We will convert her IV hydromorphone after a single dose now at 0.5 mg to oral hydromorphone 2 mg every 4-6 hours p.r.n. pain. 3. We will restart oxycodone extended release 30 mg p.o. b.i.d. starting this evening for her long acting medication. 4. We will resume her gabapentin 300 mg in the morning and 600 mg at night. 5. We will continue her ketorolac for 48 hours, she is off her NSAIDs. 6. We will contact her primary pain management doctor at [facility] with Dr. Daniels to confirm appropriate outpatient discharge once drain is removed and patient is discharged. We will provide if necessary a 3-day script of hydromorphone IR since she has already her filled her [place] oxycodone [facility] the [facility] on 12/17/16. Thank you for the consultation. We will follow along in the background. With any questions or concerns, please let us know. DICTATING PHYSICIAN: AUREA WEEKS M.D. [id number] PHY#: [id number] ID: [id number] JOB#: [id number] ACCT: [id number] cc:AUREA WEEKS M.D. > MTDD
--- NOTE | 2016-12-22 17:52 | RADIOLOGY REPORT (SQ) ---
EXAM DESCRIPTION: CT FLUID DRAINAGE WITH CATH COMPLETED DATE/TIME: 12/21/2016 12:32 pm REASON FOR STUDY: RLQ ABCESS DUE TO APPY COMPARISON: CT done earlier the same day. FLUORO TIME: 8.0 seconds LIMITATIONS: None. PROCEDURE: After obtaining informed consent, the patient was brought to the CT suite and was placed supine on the CT gurney. The patient was prepped and draped in the usual sterile fashion . Axial kourtney ges were obtained for targeting of theright lower quadrant abscess. An appropriate access site was se lected. IV sedation was administered and physician direction by the registered nurse using 1.5 millig izaiah of Versed and 200 micrograms of fentanyl. Physiologic monitoring was provided before, during, an d after sedation. The total sedation time was [address] fluoroscopic guidance the fluid collection in the right lower quadrant was cannulated. A gu idewire was placed. Sequential dilatation performed and an 8 Tamazight APD catheter placed. Purulent f luid was aspirated and sent for evaluation. The catheter was secured to the skin. There were no com plications. IMPRESSION: Successful CT-guided drain placement for abscess in the right lower quadrant. COMMENT: Patient medication list reviewed: Yes- PQRS G8427:Eligible professional attests to document ing in the medical record they obtained, updated, or reviewed the patient's current medications.. PQRS 6030F: The patient was prepped and draped using maximum sterile barrier technique including cap , mask, sterile gown, sterile globes, a large sterile sheet, hand hygiene, and 2% Chlorhexidine for c utaneous antisepsis. PQRS 6006F: Fluoroscopy time of the procedure is documented in the report. TECHNICAL DOCUMENTATION: JOB ID: [id number] [employer]- All Rights Reserved
[2016-12-22] MEDS: GABAPENTIN 300 MG CAPSULE PO SCH (22:01)
[2016-12-22] MEDS: OXYCODONE HCL SR 10 MG TABLET PO SCH (22:01)
[2016-12-23] MEDS: HYDROMORPHONE HCL 2 MG TABLET PO PRN ×5 (04:15→23:17)
[2016-12-23] MEDS: KETOROLAC TROMETHAMINE INJ/PF 30 MG/1 ML SDV IV SCH ×3 (05:13→21:34)
[2016-12-23] MEDS: PIPERACILLIN SODIUM/TAZOBACTAM 3.375 GM in NORMAL SALINE 100 ML IV SCH ×4 (05:14→23:17)
[2016-12-23] MEDS: NORMAL SALINE 1000 ML 1,000 ML IV PRN (05:22)
[2016-12-23] MEDS: ACETAMINOPHEN 325 MG TABLET PO PRN (07:42)
[2016-12-23] MEDS: GABAPENTIN 300 MG CAPSULE PO SCH ×2 (08:19→21:35)
[2016-12-23] MEDS: OXYCODONE HCL SR 10 MG TABLET PO SCH ×2 (11:31→21:36)
[2016-12-23] MEDS: DOCUSATE SODIUM 100 MG CAPSULE PO SCH ×2 (11:32→19:05)
[2016-12-23] MEDS ORDERED: FLUCONAZOLE 400 MG/NS RTU 400 MG/200 ML RTUPB IV ONE (15:00)
[2016-12-23] MEDS ORDERED: TAMSULOSIN HCL 0.4 MG CAP.SR.24H PO SCH (17:00)
--- NOTE | 2016-12-23 18:25 | PDOC CONSULTATION ---
Consultation Consult Date: 12/23/16 Attending physician:: SHERWIN BATISTA Consult reason:: Inna growing in an abscess. History of Present Illness Admission Date/PCP: 12/21/16 09:54 History of Present Illness: 41-year-old female who in July of this year had gallstones underwent a cholecystectomy. She had a retained common bile duct stone and had an ERCP. Patient developed pancreatitis after the ERCP. She then had the complication of having multiple pseudocyst. The patient was eventually transferred to [facility] for tertiary care. At that time there was concern that she had an infected pseudocyst and was treated empirically with broad-spectrum antibiotics as well as Diflucan. She clinically improved. They did not drain the cyst at that time because of the location was felt to be too difficult. She has had problems with chronic pain since then and has been on OxyContin. The patient also has had problems with right-sided hydronephrosis and had a ureteral stent placed. The patient presented to our hospital after 2 day history of worsening right lower quadrant pain. CT she was found to have a 4 x 8 cm mass around the appendix. Initially it was thought to possibly represent a ruptured appendicitis with abscess formation. Radiology placed a drain in with drainage of some bloody fluid. It was felt to most likely not be related to the appendix after this. The patient has grown out Inna from the wound culture. She also is growing out Inna from a urine culture. We have been asked to address management of the Inna from an abscess. Past Medical History Cardiac Medical History: Denies: Coronary Artery Disease, Myocardial Infarction, Hypertension - RUNS LOW Pulmonary Medical History: Denies: Asthma, Bronchitis, Chronic Obstructive Pulmonary Disease (COPD), Pneumonia Neurological Medical History: Denies: Seizures Endocrine Medical History: Denies: Diabetes Mellitus Type 1, Diabetes Mellitus Type 2 Renal/ Medical History: Denies: End Stage Renal Disease Malignancy Medical History: Reports: None GI Medical History: Reports: None Musculoskeltal Medical History: Denies: Arthritis Psychiatric Medical History: Reports: Depression Hematology: Denies: Anemia Past Surgical History Past Surgical History: Reports: Cholecystectomy, Other - Laparoscopic cholecystectomy in July of this year at the Denies: Hysterectomy Social History Information Source: Patient Lives with: Family Smoking Status: Never Smoker Frequency of Alcohol Use: Occasional Hx Recreational Drug Use: No Drugs: None Hx Prescription Drug Abuse: No - Advance Directive Resuscitation Status: Full Code Family History Family History: Mother is 58 alive and healthy. Father 62 alive and healthy. Parental Family History Reviewed: Yes Children Family History Reviewed: No Sibling(s) Family History Reviewed.: No Medication/Allergy Home Medications: Acetaminophen [Tylenol 325 mg Tablet] 975 mg PO BID 12/21/16 Bupropion HCl [Wellbutrin Xl 300mg 24hr Tablet] 300 mg PO DAILY 12/21/16 Fluoxetine HCl [Prozac] 80 mg PO DAILY 12/21/16 Gabapentin [Neurontin 300 mg Capsule] 300 mg PO DAILY 12/21/16 Gabapentin [Neurontin 300 mg Capsule] 600 mg PO QHS 12/21/16 Oxycodone HCl [Oxycontin] 10 mg PO Q12 12/21/16 Oxycodone HCl [Oxycontin] 20 mg PO Q12 12/21/16 Sucralfate [Carafate 1 gm Tablet] 1 gm PO BID 12/21/16 Tamsulosin HCl [Flomax 0.4 mg Cap.sr] 0.4 mg PO DAILY 12/21/16 Allergies/Adverse Reactions: typhoid vaccine [Typhoid Vaccine] Allergy (Intermediate, Verified 12/21/16 04:39 ) Facial edema and rash Review of Systems Constitutional: ABSENT: chills, fever(s), headache(s), weight gain, weight loss Eyes: ABSENT: visual disturbances Ears: ABSENT: hearing changes Cardiovascular: ABSENT: chest pain, dyspnea on exertion, edema, orthropnea, palpitations Respiratory: ABSENT: cough, hemoptysis Gastrointestinal: PRESENT: as per HPI, abdominal pain Genitourinary: ABSENT: dysuria, hematuria Musculoskeletal: ABSENT: joint swelling Integumentary: ABSENT: rash, wounds Neurological: ABSENT: abnormal gait, abnormal speech, confusion, dizziness, focal weakness, syncope Psychiatric: ABSENT: anxiety, depression Endocrine: ABSENT: cold intolerance, heat intolerance, polydipsia, polyuria Hematologic/Lymphatic: ABSENT: easy bleeding, easy bruising Physical Exam Vital Signs: Temp Pulse Resp BP Pulse Ox 98.7 F 50 L 16 87/45 L 93 12/23/16 08:15 12/23/16 08:15 12/23/16 08:15 12/23/16 08:15 12/23/16 08:15 Intake & Output 12/22/16 12/23/16 12/24/16 06:59 06:59 06:59 Intake Total 1525 2565 Output Total 1700 3030 Balance -175 -465 Weight 88.2 kg General appearance: PRESENT: no acute distress, well-developed, well-nourished Head exam: PRESENT: atraumatic, normocephalic Eye exam: PRESENT: conjunctiva pink, EOMI, PERRLA. ABSENT: scleral icterus Ear exam: PRESENT: normal external ear exam Mouth exam: PRESENT: moist, tongue midline Neck exam: ABSENT: carotid bruit, JVD, lymphadenopathy, thyromegaly Respiratory exam: PRESENT: clear to auscultation ryan. ABSENT: rales, rhonchi, wheezes Cardiovascular exam: PRESENT: RRR. ABSENT: diastolic murmur, rubs, systolic murmur Pulses: PRESENT: normal dorsalis pedis pul Vascular exam: PRESENT: normal capillary refill GI/Abdominal exam: PRESENT: other - Drain in place in the right lower quadrant. Extremities exam: ABSENT: calf tenderness, clubbing, pedal edema Neurological exam: PRESENT: alert, awake, oriented to person, oriented to place , oriented to time, oriented to situation, CN II-XII grossly intact. ABSENT: motor sensory deficit Psychiatric exam: PRESENT: appropriate affect Skin exam: PRESENT: dry, intact, warm. ABSENT: cyanosis, rash Results Laboratory Results: 12/22/16 06:14 12/22/16 06:14 Impressions: Abdomen/Pelvis CT 12/21/16 00:00 IMPRESSION: 1. Inflammation in the right lower abdominal quadrant adjacent to cecum with adjacent large abscess as described above. Suspect this presents sequela of acute appendicitis. 2. Right ureteral stent appears in appropriate position. Findings of partial right urinary system obstruction. Drainage Catheter Insertion 12/21/16 00:00 IMPRESSION: Successful CT-guided drain placement for abscess in the right lower quadrant. Assessment & Plan - Diagnosis (1) Inna albicans infection Is this a current diagnosis for this admission?: Yes Plan: Patient has an abscess in the right lower quadrant growing Inna. Will change from Diflucan to micafungin. Patient had previously been treated with Diflucan at [facility]. Will check blood cultures to make certain that she does not have Inna in the bloodstream. This case was discussed with the infectious disease senior analytic consultant data virtualization consultant at [facility]. Will leave the drain in place for now. The possibility of this being a communicating with the right ureter is considered. She is growing Inna from her urine culture. Urology has been consulted to evaluate the right ureteral stent. (2) Hydronephrosis Is this a current diagnosis for this admission?: Yes Plan: Urology has been consulted. (3) Depression Is this a current diagnosis for this admission?: Yes Plan: Continue with Wellbutrin and Prozac. (4) Chronic pain Is this a current diagnosis for this admission?: Yes Plan: Continue with OxyContin. (5) Intra-abdominal fluid collection Is this a current diagnosis for this admission?: Yes Plan: This was initially thought to possibly be a ruptured appendix however it looks like this is not related to the appendix at all. (6) Urinary tract infection Qualifiers: Urinary tract infection type: site unspecified Hematuria presence: without hematuria Qualified Code(s): N39.0 - Urinary tract infection, site not specified Is this a current diagnosis for this admission?: Yes Plan: The patient is growing Inna from her urine. - Time Time Spent: 50 to 70 Minutes - Inpatient Certification Medical Necessity: Need for IV Antibiotics - Plan Summary Plan Summary: We will assume care from the surgical service and be the primary attending for this patient.
[2016-12-23] MEDS: TAMSULOSIN HCL 0.4 MG CAP.SR.24H PO SCH (18:55)
--- NOTE | 2016-12-23 19:40 | PDOC PROGRESS REPORT ---
Subjective Progress Note for:: 12/23/16 Subjective:: Pains along the drain on the RLQ Physical Exam Vital Signs: Temp Pulse Resp BP Pulse Ox 98.7 F 50 L 16 87/45 L 93 12/23/16 08:15 12/23/16 08:15 12/23/16 08:15 12/23/16 08:15 12/23/16 08:15 Intake & Output 12/22/16 12/23/16 12/24/16 06:59 06:59 06:59 Intake Total 1525 2565 Output Total 1700 3030 Balance -175 -465 Weight 88.2 kg Exam: Positive tenderness along the right lower quadrant no rebound Results Laboratory Results: 12/22/16 06:14 12/22/16 06:14 Impressions: Abdomen/Pelvis CT 12/21/16 00:00 IMPRESSION: 1. Inflammation in the right lower abdominal quadrant adjacent to cecum with adjacent large abscess as described above. Suspect this presents sequela of acute appendicitis. 2. Right ureteral stent appears in appropriate position. Findings of partial right urinary system obstruction. Drainage Catheter Insertion 12/21/16 00:00 IMPRESSION: Successful CT-guided drain placement for abscess in the right lower quadrant. Assessment & Plan - Diagnosis (1) History of pancreatitis Is this a current diagnosis for this admission?: Yes Plan: Appears to have associated cyst along the right lower quadrant that was drained on admission last 12/21/2016 Culture of the drainage revealed Inna albicans as well as a urine RECEIVING CLERK. (2) Appendiceal abscess Is this a current diagnosis for this admission?: No - Time Time Spent with patient: 25-34 minutes - Plan Summary Plan Summary: The plan is to consult hospitalist because of the Inna albicans culture from the urine and from the pseudocyst cavity. I also reviewed and discussed the films with Dr. Barajas who suggested removal of the drain if does not have any positive cultures. Since patient has positive Inna albicans infection of the urine and she did caps she had she had a cyst I have given the patient a dose of Diflucan. Also I have consulted hospitalist. Hospitalist claims the patient will need more long-term IV anti-fungal medication. He apparently discuss it or he reviewed the the patient's history from the [facility]. I will then leave the drain in place for the time being. I will transfer the patient to the hospitalist service but surgery will continue to follow her.
[2016-12-23] MEDS: BUPROPION HCL 100 MG TABLET PO SCH (21:36)
[2016-12-23] MEDS: MICAFUNGIN SODIUM 100 MG in NORMAL SALINE 100 ML IV SCH (21:50)
[2016-12-24] MEDS: HYDROMORPHONE HCL 2 MG TABLET PO PRN ×4 (04:51→19:52)
[2016-12-24] MEDS: BUPROPION HCL 100 MG TABLET PO SCH ×3 (05:02→22:48)
[2016-12-24] MEDS: PIPERACILLIN SODIUM/TAZOBACTAM 3.375 GM in NORMAL SALINE 100 ML IV SCH ×4 (05:02→23:01)
[2016-12-24] MEDS: KETOROLAC TROMETHAMINE INJ/PF 30 MG/1 ML SDV IV SCH ×3 (05:02→22:49)
[2016-12-24] MEDS: GABAPENTIN 300 MG CAPSULE PO SCH ×2 (07:38→22:47)
[2016-12-24] MEDS: FLUOXETINE HCL 20 MG CAPSULE PO SCH (09:21)
[2016-12-24] MEDS: OXYCODONE HCL SR 10 MG TABLET PO SCH ×2 (09:21→22:48)
[2016-12-24] MEDS: DOCUSATE SODIUM 100 MG CAPSULE PO SCH ×2 (09:25→17:41)
--- NOTE | 2016-12-24 10:40 | PDOC PROGRESS REPORT ---
Subjective Progress Note for:: 12/24/16 Subjective:: Complains of pain in the right lower quadrant. No worse than yesterday. Physical Exam Vital Signs: Temp Pulse Resp BP Pulse Ox 97.9 F 62 16 95/49 L 98 12/24/16 07:20 12/24/16 07:20 12/24/16 07:20 12/24/16 07:20 12/24/16 07:20 Intake & Output 12/23/16 12/24/16 12/25/16 06:59 06:59 06:59 Intake Total 2565 Output Total 3030 5 Balance -465 -5 Weight 88.2 kg 88 kg General appearance: PRESENT: no acute distress Eye exam: PRESENT: conjunctiva pink. ABSENT: scleral icterus Neck exam: ABSENT: JVD Respiratory exam: PRESENT: clear to auscultation ryan. ABSENT: rales, rhonchi, wheezes Cardiovascular exam: PRESENT: RRR. ABSENT: diastolic murmur, rubs, systolic murmur GI/Abdominal exam: PRESENT: normal bowel sounds, soft, tenderness - Right lower quadrant., other - Drain in place in the right lower quadrant.. ABSENT: distended, guarding, mass, organolmegaly, rebound Extremities exam: ABSENT: calf tenderness, clubbing, pedal edema Neurological exam: PRESENT: alert, awake, oriented to person, oriented to place , oriented to time, oriented to situation, CN II-XII grossly intact. ABSENT: motor sensory deficit Psychiatric exam: PRESENT: appropriate affect Skin exam: PRESENT: dry, intact, warm. ABSENT: cyanosis, rash Results Laboratory Results: 12/22/16 06:14 12/22/16 06:14 Impressions: Abdomen/Pelvis CT 12/21/16 00:00 IMPRESSION: 1. Inflammation in the right lower abdominal quadrant adjacent to cecum with adjacent large abscess as described above. Suspect this presents sequela of acute appendicitis. 2. Right ureteral stent appears in appropriate position. Findings of partial right urinary system obstruction. Drainage Catheter Insertion 12/21/16 00:00 IMPRESSION: Successful CT-guided drain placement for abscess in the right lower quadrant. Assessment & Plan - Diagnosis (1) Inna albicans infection Is this a current diagnosis for this admission?: Yes Plan: Patient has an abscess in the right lower quadrant growing Inna. Continue with drain. Antifungal treatment was changed from Diflucan to micafungin. Patient had previously been treated with Diflucan at [facility]. She is growing Inna from her urine culture. Urology has been consulted to evaluate the right ureteral stent. (2) Hydronephrosis Is this a current diagnosis for this admission?: Yes Plan: Urology has been consulted. (3) Depression Is this a current diagnosis for this admission?: Yes Plan: Continue with Wellbutrin and Prozac. (4) Chronic pain Is this a current diagnosis for this admission?: Yes Plan: Continue with OxyContin. (5) Intra-abdominal fluid collection Is this a current diagnosis for this admission?: Yes Plan: This was initially thought to possibly be a ruptured appendix however it looks like this is not related to the appendix at all. (6) Urinary tract infection Qualifiers: Urinary tract infection type: site unspecified Hematuria presence: without hematuria Qualified Code(s): N39.0 - Urinary tract infection, site not specified Is this a current diagnosis for this admission?: Yes Plan: The patient is growing Inna from her urine. - Time Time Spent with patient: 25-34 minutes - Inpatient Certification Medical Necessity: Need for IV Antibiotics
[2016-12-24] MEDS: NORMAL SALINE 1000 ML 1,000 ML IV PRN ×2 (11:11→19:53)
--- NOTE | 2016-12-24 13:33 | PDOC CONSULTATION ---
Consultation Consult Date: 12/24/16 Consult reason:: Right ureteral stent, candidal cystitis History of Present Illness Admission Date/PCP: 12/21/16 09:54 Patient complains of: Right lower quadrant discomfort History of Present Illness: 41-year-old female who in July of this year had gallstones underwent a cholecystectomy. She had a retained common bile duct stone and had an ERCP. Patient developed pancreatitis after the ERCP. She then had the complication of having multiple pseudocyst. The patient was eventually transferred to [place] for tertiary care. At that time there was concern that she had an infected pseudocyst and was treated empirically with broad-spectrum antibiotics as well as Diflucan. She clinically improved. They did not drain the cyst at that time because of the location was felt to be too difficult. She has had problems with chronic pain since then and has been on OxyContin. The patient also has had problems with right-sided hydronephrosis and had a ureteral stent placed. The patient presented to our hospital after 2 day history of worsening right lower quadrant pain. CT she was found to have a 4 x 8 cm mass around the appendix. Initially it was thought to possibly represent a ruptured appendicitis with abscess formation. Radiology placed a drain in with drainage of some bloody fluid. It was felt to most likely not be related to the appendix after this. The patient has grown out Inna from the wound culture. She also is growing out Inna from a urine culture. We have been asked to address management of the Inna from an abscess. Past Medical History Cardiac Medical History: Denies: Coronary Artery Disease, Myocardial Infarction, Hypertension - RUNS LOW Pulmonary Medical History: Denies: Asthma, Bronchitis, Chronic Obstructive Pulmonary Disease (COPD), Pneumonia Neurological Medical History: Denies: Seizures Endocrine Medical History: Denies: Diabetes Mellitus Type 1, Diabetes Mellitus Type 2 Renal/ Medical History: Denies: End Stage Renal Disease Malignancy Medical History: Reports: None GI Medical History: Reports: None Musculoskeltal Medical History: Denies: Arthritis Psychiatric Medical History: Reports: Depression Hematology: Denies: Anemia Past Surgical History Past Surgical History: Reports: Cholecystectomy, Other - Laparoscopic cholecystectomy in July of this year at the [facility] Denies: Hysterectomy Social History Lives with: Family Smoking Status: Never Smoker Frequency of Alcohol Use: Occasional Hx Recreational Drug Use: No Drugs: None Hx Prescription Drug Abuse: No - Advance Directive Resuscitation Status: Full Code Family History Family History: Reviewed & Not Pertinent Parental Family History Reviewed: No Children Family History Reviewed: No Sibling(s) Family History Reviewed.: No Medication/Allergy Home Medications: Acetaminophen [Tylenol 325 mg Tablet] 975 mg PO BID 12/21/16 Bupropion HCl [Wellbutrin Xl 300mg 24hr Tablet] 300 mg PO DAILY 12/21/16 Fluoxetine HCl [Prozac] 80 mg PO DAILY 12/21/16 Gabapentin [Neurontin 300 mg Capsule] 300 mg PO DAILY 12/21/16 Gabapentin [Neurontin 300 mg Capsule] 600 mg PO QHS 12/21/16 Oxycodone HCl [Oxycontin] 10 mg PO Q12 12/21/16 Oxycodone HCl [Oxycontin] 20 mg PO Q12 12/21/16 Sucralfate [Carafate 1 gm Tablet] 1 gm PO BID 12/21/16 Tamsulosin HCl [Flomax 0.4 mg Cap.sr] 0.4 mg PO DAILY 12/21/16 Allergies/Adverse Reactions: typhoid vaccine [Typhoid Vaccine] Allergy (Intermediate, Verified 12/21/16 04:39 ) Facial edema and rash Physical Exam Vital Signs: Temp Pulse Resp BP Pulse Ox 97.9 F 62 16 95/49 L 98 12/24/16 07:20 12/24/16 07:20 12/24/16 07:20 12/24/16 07:20 12/24/16 07:20 Intake & Output 12/23/16 12/24/16 12/25/16 06:59 06:59 06:59 Intake Total 2565 Output Total 3030 5 Balance -465 -5 Weight 88.2 kg 88 kg Results Laboratory Results: 12/22/16 06:14 12/22/16 06:14 Impressions: Abdomen/Pelvis CT 12/21/16 00:00 IMPRESSION: 1. Inflammation in the right lower abdominal quadrant adjacent to cecum with adjacent large abscess as described above. Suspect this presents sequela of acute appendicitis. 2. Right ureteral stent appears in appropriate position. Findings of partial right urinary system obstruction. Drainage Catheter Insertion 12/21/16 00:00 IMPRESSION: Successful CT-guided drain placement for abscess in the right lower quadrant. Assessment & Plan - Diagnosis (1) Urinary tract infection Qualifiers: Urinary tract infection type: site unspecified Hematuria presence: without hematuria Is this a current diagnosis for this admission?: Yes Plan: This patient has a fungal urinary tract infection which has not cleared with Diflucan. She is now been placed on an alternative antifungal after discussion between the hospitalist and infectious disease. 4 total resolution of her urinary tract fungal infection, she may need removal or removal and replacement of her right ureteral stent. I have a call into the [facility] urology division where the stent was placed to help understand the reasoning and the wisdom of removal at this time. (2) Hydronephrosis Qualifiers: Hydronephrosis type: unspecified Qualified Code(s): N13.30 - Unspecified hydronephrosis Is this a current diagnosis for this admission?: Yes Plan: According to the patient the dilation of the right renal unit and resulting creatinine change was the reasoning for the placement of the right ureteral stent. The obstruction was thought to be due to external compression from a pancreatic pseudocyst or intra-abdominal collection after a cholecystectomy and development of pancreatitis postoperatively. A CT-guided drain has been placed into a fluid collection around the right hemicolon. The fluid collection is now close to the ureteral stent and ureter. It does not appear to be communicating with the right ureter due to the lack of contrast in the fluid collection after administration of intravenous contrast. At this point I am inclined to leave the stent, at least temporarily, due to the proximity of the fluid collection which appears to be inflammatory in nature. I am also hesitant to change it at this point in case there is inflammation in the ureter which appears to be present on CT. There would be a higher chance of ureteral perforation during the stent exchange. Again I have a call into the urologist at the [facility] for their opinion on removal of the stent entirely.
[2016-12-24] MEDS: ALBUTEROL SULFATE 0.083% NEB 2.5 MG/3 ML AMPUL NEB PRN ×2 (14:41→20:30)
[2016-12-24] MEDS: TAMSULOSIN HCL 0.4 MG CAP.SR.24H PO SCH (17:37)
[2016-12-24] MEDS: ACETAMINOPHEN 325 MG TABLET PO PRN (18:08)
--- NOTE | 2016-12-24 19:03 | PDOC PROGRESS REPORT ---
Subjective Progress Note for:: 12/24/16 Subjective:: Still having some abdominal pain but improved from admission. Tolerating a diet well. Physical Exam Vital Signs: Temp Pulse Resp BP Pulse Ox 97.9 F 74 16 106/56 L 95 12/24/16 07:20 12/24/16 16:32 12/24/16 16:32 12/24/16 16:32 12/24/16 16:32 Intake & Output 12/23/16 12/24/16 12/25/16 06:59 06:59 06:59 Intake Total 2565 3798 Output Total 3030 5 Balance -465 -5 3798 Weight 88.2 kg 88 kg General appearance: PRESENT: no acute distress, cooperative Respiratory exam: PRESENT: clear to auscultation ryan Cardiovascular exam: PRESENT: RRR GI/Abdominal exam: PRESENT: other - Soft, nondistended, mild right mid abdominal tenderness without peritoneal signs. Drain in place. Results Laboratory Results: 12/22/16 06:14 12/22/16 06:14 12/22/16 17:40 Fluid Amylase 18 Impressions: Abdomen/Pelvis CT 12/21/16 00:00 IMPRESSION: 1. Inflammation in the right lower abdominal quadrant adjacent to cecum with adjacent large abscess as described above. Suspect this presents sequela of acute appendicitis. 2. Right ureteral stent appears in appropriate position. Findings of partial right urinary system obstruction. Drainage Catheter Insertion 12/21/16 00:00 IMPRESSION: Successful CT-guided drain placement for abscess in the right lower quadrant. Assessment & Plan - Diagnosis (1) Inna albicans infection Is this a current diagnosis for this admission?: Yes Plan: Intra-abdominal fluid collection drained. Uncertain of etiology. Patient with history of pancreatic pseudocyst. Fluid analysis is still pending at this time. For continuity of care patient would be much better served at the [facility]. And patient would prefer to be transferred to the [facility] if appropriate. Will try to get a hold of her surgeon tomorrow for transfer.
[2016-12-24] MEDS: MICAFUNGIN SODIUM 100 MG in NORMAL SALINE 100 ML IV SCH (22:49)
[2016-12-25] MEDS: HYDROMORPHONE HCL 2 MG TABLET PO PRN ×4 (01:13→19:34)
[2016-12-25] MEDS: BUPROPION HCL 100 MG TABLET PO SCH ×3 (05:15→22:11)
[2016-12-25] MEDS: KETOROLAC TROMETHAMINE INJ/PF 30 MG/1 ML SDV IV SCH ×3 (05:16→22:12)
[2016-12-25] MEDS: PIPERACILLIN SODIUM/TAZOBACTAM 3.375 GM in NORMAL SALINE 100 ML IV SCH ×3 (05:17→17:25)
[2016-12-25] MEDS: NORMAL SALINE 1000 ML 1,000 ML IV PRN ×3 (07:03→20:34)
[2016-12-25] MEDS: GABAPENTIN 300 MG CAPSULE PO SCH ×2 (08:51→22:12)
[2016-12-25] MEDS: DOCUSATE SODIUM 100 MG CAPSULE PO SCH ×2 (09:31→17:25)
[2016-12-25] MEDS: OXYCODONE HCL SR 10 MG TABLET PO SCH ×2 (10:36→22:13)
[2016-12-25] MEDS: FLUOXETINE HCL 20 MG CAPSULE PO SCH (10:38)
[2016-12-25] MEDS ORDERED: GUAIFENESIN 600 MG TABLET.SA PO ONE (13:00)
--- NOTE | 2016-12-25 15:41 | PDOC PROGRESS REPORT ---
Subjective Progress Note for:: 12/25/16 Subjective:: Complains of pain in the right lower quadrant. She reports that there is been more drainage from her right lower quadrant because some leaked out of the back. Physical Exam Vital Signs: Temp Pulse Resp BP Pulse Ox 98 F 71 16 106/61 96 12/25/16 12:00 12/25/16 12:00 12/25/16 12:00 12/25/16 12:00 12/25/16 12:00 Intake & Output 12/24/16 12/25/16 12/26/16 06:59 06:59 06:59 Intake Total 4248 0 Output Total 5 5 10 Balance -5 4243 0 Weight 88 kg 88.1 kg General appearance: PRESENT: no acute distress Eye exam: PRESENT: conjunctiva pink. ABSENT: scleral icterus Mouth exam: PRESENT: moist, tongue midline Neck exam: ABSENT: JVD Respiratory exam: PRESENT: clear to auscultation ryan. ABSENT: rales, rhonchi, wheezes Cardiovascular exam: PRESENT: RRR. ABSENT: diastolic murmur, rubs, systolic murmur GI/Abdominal exam: PRESENT: normal bowel sounds, soft, tenderness - Generalized tenderness.. ABSENT: distended, guarding, mass, organolmegaly, rebound Extremities exam: ABSENT: calf tenderness, clubbing, pedal edema Neurological exam: PRESENT: alert, awake, oriented to person, oriented to place , oriented to time, oriented to situation, CN II-XII grossly intact. ABSENT: motor sensory deficit Psychiatric exam: PRESENT: appropriate affect Skin exam: PRESENT: dry, intact, warm. ABSENT: cyanosis, rash Results Laboratory Results: 12/22/16 06:14 12/22/16 06:14 12/22/16 17:40 Fluid Amylase 18 12/21/16 11:40 Abdomen - Abscess Gram Stain - Final 12/21/16 11:40 Abdomen - Abscess Wound Culture - Final C.albicans/C.dubliniensis Impressions: Abdomen/Pelvis CT 12/21/16 00:00 IMPRESSION: 1. Inflammation in the right lower abdominal quadrant adjacent to cecum with adjacent large abscess as described above. Suspect this presents sequela of acute appendicitis. 2. Right ureteral stent appears in appropriate position. Findings of partial right urinary system obstruction. Drainage Catheter Insertion 12/21/16 00:00 IMPRESSION: Successful CT-guided drain placement for abscess in the right lower quadrant. Assessment & Plan - Diagnosis (1) Inna albicans infection Is this a current diagnosis for this admission?: Yes Plan: Patient has an abscess in the right lower quadrant growing Inna. Continue with drain. Antifungal treatment was changed from Diflucan to micafungin. Patient had previously been treated with Diflucan at [facility]. She is growing Inna from her urine culture. Infectious disease consultation from [facility] has recommended that we do testing on the Inna to make certain that it is sensitive to Diflucan. (2) Hydronephrosis Qualifiers: Hydronephrosis type: unspecified Qualified Code(s): N13.30 - Unspecified hydronephrosis Is this a current diagnosis for this admission?: Yes Plan: Urology has Evaluated the patient. The question is whether or not to remove the stent. Given the local inflammation this will be left in for now given that she does have some hydronephrosis on the right. It will eventually need to be removed because of the Inna infection. (3) Depression Is this a current diagnosis for this admission?: Yes Plan: Continue with Wellbutrin and Prozac. (4) Chronic pain Is this a current diagnosis for this admission?: Yes Plan: Continue with OxyContin. (5) Intra-abdominal fluid collection Is this a current diagnosis for this admission?: Yes Plan: This was initially thought to possibly be a ruptured appendix however it looks like this is not related to the appendix at all. (6) Urinary tract infection Qualifiers: Urinary tract infection type: site unspecified Hematuria presence: without hematuria Qualified Code(s): N39.0 - Urinary tract infection, site not specified Is this a current diagnosis for this admission?: Yes Plan: The patient is growing Inna from her urine. Continue with micafungin - Time Time Spent with patient: 25-34 minutes - Inpatient Certification Medical Necessity: Need for IV Antibiotics - Plan Summary Plan Summary: The surgeon yesterday discussed possibly transferring back to [facility]. I have discussed this the patient and she will stay at our facility for now.
--- NOTE | 2016-12-25 17:22 | PDOC PROGRESS REPORT ---
Subjective Progress Note for:: 12/25/16 Subjective:: Right lower quadrant pain Physical Exam Vital Signs: Temp Pulse Resp BP Pulse Ox 98 F 71 16 106/61 96 12/25/16 12:00 12/25/16 12:00 12/25/16 12:00 12/25/16 12:00 12/25/16 12:00 Intake & Output 12/24/16 12/25/16 12/26/16 06:59 06:59 06:59 Intake Total 4248 0 Output Total 5 5 10 Balance -5 4243 2039 Weight 88 kg 88.1 kg Exam: Is mild tenderness in the right lower quadrant where the drain is. Drain is about 10 cc of dark brownish fluid. Culture showed Inna albicans. She is she is being managed for this by medicine. Results Laboratory Results: 12/22/16 06:14 12/22/16 06:14 12/21/16 11:40 Abdomen - Abscess Gram Stain - Final 12/21/16 11:40 Abdomen - Abscess Wound Culture - Final C.albicans/C.dubliniensis Impressions: Abdomen/Pelvis CT 12/21/16 00:00 IMPRESSION: 1. Inflammation in the right lower abdominal quadrant adjacent to cecum with adjacent large abscess as described above. Suspect this presents sequela of acute appendicitis. 2. Right ureteral stent appears in appropriate position. Findings of partial right urinary system obstruction. Drainage Catheter Insertion 12/21/16 00:00 IMPRESSION: Successful CT-guided drain placement for abscess in the right lower quadrant. Assessment & Plan - Diagnosis (1) History of pancreatitis Is this a current diagnosis for this admission?: Yes (2) Appendiceal abscess Is this a current diagnosis for this admission?: No - Time Time Spent with patient: 15-24 minutes - Plan Summary Plan Summary: An attempt to call Dr. pereira at the [facility] was made. I spoke to somebody at the clinic and they said Dr. pereira the surgeon who did patient's original operation was still tied up in this patient's and I left my phone number for him to call me back. The plan is to hopefully transfer the patient back to the [facility] since and they are more familiar with her case then we do here at [place]. Meantime continue with antifungal therapy and leave drain tube for now
[2016-12-25] MEDS: TAMSULOSIN HCL 0.4 MG CAP.SR.24H PO SCH (17:24)
[2016-12-25] MEDS: ACETAMINOPHEN 325 MG TABLET PO PRN (17:41)
[2016-12-25] MEDS: ALBUTEROL SULFATE 0.083% NEB 2.5 MG/3 ML AMPUL NEB PRN (20:27)
[2016-12-25] MEDS: MICAFUNGIN SODIUM 100 MG in NORMAL SALINE 100 ML IV SCH (22:09)
[2016-12-25] MEDS: GUAIFENESIN 600 MG TABLET.SA PO SCH (22:28)
[2016-12-26] MEDS: PIPERACILLIN SODIUM/TAZOBACTAM 3.375 GM in NORMAL SALINE 100 ML IV SCH ×4 (00:01→17:42)
[2016-12-26] MEDS: HYDROMORPHONE HCL 2 MG TABLET PO PRN ×5 (02:19→19:53)
[2016-12-26] MEDS: KETOROLAC TROMETHAMINE INJ/PF 30 MG/1 ML SDV IV SCH ×2 (05:20→13:45)
[2016-12-26] MEDS: BUPROPION HCL 100 MG TABLET PO SCH ×3 (05:21→21:01)
[2016-12-26] MEDS: ACETAMINOPHEN 325 MG TABLET PO PRN (08:25)
[2016-12-26] MEDS: GABAPENTIN 300 MG CAPSULE PO SCH ×2 (08:27→21:02)
[2016-12-26] MEDS: FLUOXETINE HCL 20 MG CAPSULE PO SCH (09:05)
[2016-12-26] MEDS: GUAIFENESIN 600 MG TABLET.SA PO SCH ×2 (09:05→21:00)
[2016-12-26] MEDS: OXYCODONE HCL SR 10 MG TABLET PO SCH ×2 (09:06→21:03)
[2016-12-26] MEDS: DOCUSATE SODIUM 100 MG CAPSULE PO SCH ×2 (09:07→17:42)
[2016-12-26] MEDS ORDERED: FUROSEMIDE 40 MG TABLET PO ONE (11:00)
--- NOTE | 2016-12-26 11:32 | PDOC PROGRESS REPORT ---
Subjective Progress Note for:: 12/26/16 Subjective:: Complains of pain in the right lower quadrant. Physical Exam Vital Signs: Temp Pulse Resp BP Pulse Ox 98.4 F 64 18 114/73 92 12/26/16 07:55 12/26/16 07:55 12/26/16 07:55 12/26/16 07:55 12/26/16 07:55 Intake & Output 12/25/16 12/26/16 12/27/16 06:59 06:59 06:59 Intake Total 4248 3650 Output Total 5 10 Balance 4243 3640 Weight 88.1 kg 94.801 kg General appearance: PRESENT: no acute distress Eye exam: PRESENT: conjunctiva pink. ABSENT: scleral icterus Mouth exam: PRESENT: moist, tongue midline Neck exam: ABSENT: JVD Respiratory exam: PRESENT: clear to auscultation ryan. ABSENT: rales, rhonchi, wheezes Cardiovascular exam: PRESENT: RRR. ABSENT: diastolic murmur, rubs, systolic murmur Vascular exam: PRESENT: normal capillary refill GI/Abdominal exam: PRESENT: normal bowel sounds, soft, tenderness - Right lower quadrant tenderness.. ABSENT: distended, guarding, mass, organolmegaly, rebound Extremities exam: ABSENT: calf tenderness, clubbing, pedal edema Neurological exam: PRESENT: alert, awake, oriented to person, oriented to place , oriented to time, oriented to situation, CN II-XII grossly intact. ABSENT: motor sensory deficit Results Laboratory Results: 12/22/16 06:14 12/22/16 06:14 12/21/16 11:40 Abdomen - Abscess Gram Stain - Final 12/21/16 11:40 Abdomen - Abscess Wound Culture - Final C.albicans/C.dubliniensis Impressions: Abdomen/Pelvis CT 12/21/16 00:00 IMPRESSION: 1. Inflammation in the right lower abdominal quadrant adjacent to cecum with adjacent large abscess as described above. Suspect this presents sequela of acute appendicitis. 2. Right ureteral stent appears in appropriate position. Findings of partial right urinary system obstruction. Drainage Catheter Insertion 12/21/16 00:00 IMPRESSION: Successful CT-guided drain placement for abscess in the right lower quadrant. Assessment & Plan - Diagnosis (1) Inna albicans infection Is this a current diagnosis for this admission?: Yes Plan: Patient has an abscess in the right lower quadrant growing Inna. Continue with drain. Antifungal treatment was changed from Diflucan to micafungin. Patient had previously been treated with Diflucan at [place]. She is growing Inna from her urine culture. The Inna from the wound culture has been sent out for testing on the Inna to make certain that it is sensitive to Diflucan. (2) Hydronephrosis Qualifiers: Hydronephrosis type: unspecified Qualified Code(s): N13.30 - Unspecified hydronephrosis Is this a current diagnosis for this admission?: Yes Plan: Urology has evaluated the patient. The question is whether or not to remove the stent. Given the local inflammation this will be left in for now given that she does have some hydronephrosis on the right. It will eventually need to be removed because of the Inna infection. (3) Depression Is this a current diagnosis for this admission?: Yes Plan: Continue with Wellbutrin and Prozac. (4) Chronic pain Is this a current diagnosis for this admission?: Yes Plan: Continue with OxyContin. (5) Intra-abdominal fluid collection Is this a current diagnosis for this admission?: Yes Plan: This was initially thought to possibly be a ruptured appendix however it looks like this is not related to the appendix at all. (6) Urinary tract infection Qualifiers: Urinary tract infection type: site unspecified Hematuria presence: without hematuria Qualified Code(s): N39.0 - Urinary tract infection, site not specified Is this a current diagnosis for this admission?: Yes Plan: The patient is growing Inna from her urine. Continue with micafungin - Time Time Spent with patient: 25-34 minutes - Inpatient Certification Medical Necessity: Need for IV Antibiotics - Plan Summary Plan Summary: We will plan on getting another abdominal CT to evaluate the abscess size. Hopefully we can pull this drain out on Thursday and discharged home on Thursday.
--- NOTE | 2016-12-26 14:05 | RADIOLOGY REPORT (SQ) ---
EXAM DESCRIPTION: CT ABD/PELVIS WITH IV ONLY COMPLETED DATE/TIME: 12/26/2016 1:41 pm REASON FOR STUDY: size of pseudocyst COMPARISON: CT abdomen pelvis 12/21/2016, CT-guided abscess drainage catheter placement 12/21/2016 TECHNIQUE: CT scan of the abdomen and pelvis performed using helical scanning technique with dynamic intravenous contrast injection. No oral contrast. Images reviewed with lung, soft tissue, and bone windows. Reconstructed coronal and sagittal MPR imag es reviewed. Delayed images for evaluation of the urinary system also acquired. All images stored on PACS. All CT scanners at this facility use dose modulation, iterative reconstruction, and/or weight based d osing when appropriate to reduce radiation dose to as low as reasonably achievable (ALARA). [facility]: Dose Right [facility]: CareDose [facility]: Dose Right [facility]: Teradose 4D [facility]: MIGSIF CONTRAST TYPE AND DOSE: contrast/concentration: Isovue 370.00 mg/ml; Total Contrast Delivered: 100.0 ml; Total Saline Delivered: 72.0 ml RENAL FUNCTION: Creatinine 0.65 RADIATION DOSE: Up-to-date CT equipment and radiation dose reduction techniques were employed. CTDIv ol: 15.2 - 15.9 mGy. DLP: 1714 mGy-cm.. LIMITATIONS: None. FINDINGS: A right lower quadrant percutaneously placed pigtail catheter present. The catheter ata ears to have been pulled back since is placement. There is a kink in the catheter on sagittal recons truction image 36. The anterior loculation of the abscess seen on 12/21/2016 has resolved. There is a persistent posteri or loculation which is smaller than on previous studies. Currently, residual fluid is seen along the dorsal aspect of the catheter, 3 x 2.2 x 6.4 cm in size (was 4.3 x 4.2 x 9 cm in size on 12/21/2016). These findings were discussed with Dr. Kendrick. There is a right-sided double-J ureteral stent in place, in good positioning. LOWER CHEST: Patchy left basilar airspace disease likely atelectasis. Early or developing pneumonia could not be excluded. Trace bilateral pleural effusions. LIVER: Normal size. No masses. No dilated ducts. SPLEEN: Normal size. No focal lesions. PANCREAS: No masses. No significant calcifications. No adjacent inflammation or peripancreatic fluid collections. Pancreatic duct not dilated. GALLBLADDER: Surgically absent ADRENAL GLANDS: No significant masses or asymmetry. RIGHT KIDNEY AND URETER: No solid masses. No significant calcifications. Right-sided double-J patricia nt unchanged, moderate right hydronephrosis, similar compared to CT exam 12/21/2016. LEFT KIDNEY AND URETER: No solid masses. No significant calcifications. No hydronephrosis or hydr oureter. AORTA AND VESSELS: No aneurysm. No dissection. Renal arteries, SMA, celiac without stenosis. RETROPERITONEUM: No retroperitoneal adenopathy, hemorrhage or masses. BOWEL AND PERITONEAL CAVITY: No masses or inflammatory changes. No free fluid or peritoneal masses. Large amount of stool throughout colon. APPENDIX: Not identified PELVIS: No mass. No free fluid. Normal bladder. ABDOMINAL WALL: No masses. No hernias. BONES: Degenerative disc changes at L5-S1 OTHER: No other significant finding. IMPRESSION: Significant decrease in size of the right deep abdominal abscess compared to 12/21/2016. Catheter has been pulled back, the tip of the catheter is ventral to the residual fluid collection. Catheter appears kinked on sagittal image 36 COMMENT: This report was discussed with Dr. Kednrick TECHNICAL DOCUMENTATION: JOB ID: [id number] Quality ID # [id number]: Final reports with documentation of one or more dose reduction techniques (e.g., Au tomated exposure control, adjustment of the mA and/or kV according to patient size, use of iterative reconstruction technique) 2010 [employer]- All Rights Reserved
--- NOTE | 2016-12-26 15:58 | PDOC PROGRESS REPORT ---
Subjective Progress Note for:: 12/26/16 Subjective:: Still with some right lower quadrant pains Physical Exam Vital Signs: Temp Pulse Resp BP Pulse Ox 98.4 F 59 L 16 114/73 96 12/26/16 07:55 12/26/16 14:24 12/26/16 14:24 12/26/16 07:55 12/26/16 14:24 Intake & Output 12/25/16 12/26/16 12/27/16 06:59 06:59 06:59 Intake Total 4248 3650 Output Total 5 10 Balance 4243 3640 Weight 88.1 kg 94.801 kg Exam: Still quite tender in the right lower quadrant Results Laboratory Results: 12/22/16 06:14 12/22/16 06:14 12/21/16 11:40 Abdomen - Abscess Gram Stain - Final 12/21/16 11:40 Abdomen - Abscess Wound Culture - Final C.albicans/C.dubliniensis Impressions: Drainage Catheter Insertion 12/21/16 00:00 IMPRESSION: Successful CT-guided drain placement for abscess in the right lower quadrant. Abdomen/Pelvis CT 12/26/16 00:00 IMPRESSION: Significant decrease in size of the right deep abdominal abscess compared to 12/21/2016. Catheter has been pulled back, the tip of the catheter is ventral to the residual fluid collection. Catheter appears kinked on sagittal image 36 Assessment & Plan - Diagnosis (1) History of pancreatitis Is this a current diagnosis for this admission?: Yes - Time Time Spent with patient: 15-24 minutes - I spoke with the Dr. coleman at the [facility] was very familiar with this patient. He suggested to follow up with the CAT scan to see the size of the pseudocyst. He suggested continuing the antifungal medication and the patient can be discharged on Thursday and see him in the surgical clinic at the [facility] on Thursday. - Plan Summary Plan Summary: Follow-up CAT scan of the abdomen and pelvis was done. I also spoke with Dr. Susu Holden the radiologist who said that the size of the pseudocyst is about half the original size but there may be a kink in the catheter but he tripped she tried to pull it back a little bit. We will keep the catheter for now since Dr. Coleman suggested we leave it in until he sees her Thursday. I spoke to ,the covering Hospitalist, about such plans. Also the floor nurses already made arrangements for her to be followed up at the [facility] this coming Barbi. I also informed the patient about the CAT scan findings and the fact that I spoke with Dr. Coleman at the [facility] who is going to see her this Barbi.
[2016-12-26] MEDS: TAMSULOSIN HCL 0.4 MG CAP.SR.24H PO SCH (17:41)
[2016-12-26] MEDS: MICAFUNGIN SODIUM 100 MG in NORMAL SALINE 100 ML IV SCH (21:05)
[2016-12-27] MEDS: PIPERACILLIN SODIUM/TAZOBACTAM 3.375 GM in NORMAL SALINE 100 ML IV SCH ×4 (00:27→17:34)
[2016-12-27] MEDS: HYDROMORPHONE HCL 2 MG TABLET PO PRN ×4 (04:42→22:36)
[2016-12-27 05:05] LABS: ABSOLUTE BASOPHILS # (AUTO) 0.1 10^3/uL (0.0-0.2); ABSOLUTE EOSINOPHILS # (AUTO) 0.5 10^3/uL (0.0-0.6); ABSOLUTE LYMPHOCYTES (AUTO) 1.2 10^3/uL (0.5-4.7); ABSOLUTE MONOCYTES (AUTO) 0.4 10^3/uL (0.1-1.4); ABSOLUTE NEUT (AUTO) 5.2 10^3/uL (1.7-8.2); BASOPHILS % (AUTO) 1.2 % (0-2); EOSINOPHILS % (AUTO) 6.3 % (0-6); HEMATOCRIT 28.9 % (36.0-47.0); HEMOGLOBIN 9.8 g/dL (12.0-15.5); HGB HCT DIFFERENCE 0.5; LYMPHOCYTES % (AUTO) 16.7 % (13-45); MEAN CORPUSCULAR HEMOGLOBIN 29.6 pg (27.0-33.4); MEAN CORPUSCULAR HGB CONC 33.8 g/dL (32.0-36.0); MEAN CORPUSCULAR VOLUME 88 fl (80-97); MONOCYTES % (AUTO) 5.8 % (3-13); RED BLOOD COUNT 3.31 10^6/uL (3.72-5.28); WHITE BLOOD COUNT 7.4 10^3/uL (4.0-10.5)
[2016-12-27 05:17] LABS: ANION GAP 11 (5-19); BLOOD UREA NITROGEN 8 mg/dL (7-20); CALCIUM 8.9 mg/dL (8.4-10.2); CARBON DIOXIDE 32 mmol/L (22-30); CHLORIDE 99 mmol/L (98-107); CREATININE RESULT 0.81 mg/dL (0.52-1.25); GLUCOSE 98 mg/dL (75-110); POTASSIUM 4.1 mmol/L (3.6-5.0); SODIUM 141.5 mmol/L (137-145)
[2016-12-27] MEDS: BUPROPION HCL 100 MG TABLET PO SCH ×3 (05:27→23:15)
[2016-12-27] MEDS: GABAPENTIN 300 MG CAPSULE PO SCH ×2 (08:00→23:16)
[2016-12-27] MEDS ORDERED: KETOROLAC TROMETHAMINE INJ/PF 30 MG/1 ML SDV IV ONE (08:00)
--- NOTE | 2016-12-27 09:33 | PDOC PROGRESS REPORT ---
Subjective Progress Note for:: 12/27/16 Subjective:: pain better no fever Physical Exam Vital Signs: Temp Pulse Resp BP Pulse Ox 98.8 F 65 16 101/56 L 98 12/27/16 07:58 12/27/16 09:10 12/27/16 09:10 12/27/16 07:58 12/27/16 09:10 Intake & Output 12/26/16 12/27/16 12/28/16 06:59 06:59 06:59 Intake Total 3650 200 Output Total 10 Balance 3640 200 Weight 94.801 kg 91.081 kg GI/Abdominal exam: PRESENT: soft - minimal tenderness Results Laboratory Results: 12/27/16 04:38 12/27/16 04:38 12/27/16 12/27/16 04:38 04:38 WBC 7.4 RBC 3.31 L Hgb 9.8 L Hct 28.9 L MCV 88 MCH 29.6 MCHC 33.8 RDW 15.0 H Plt Count 246 Seg Neutrophils % 70.0 Lymphocytes % 16.7 Monocytes % 5.8 Eosinophils % 6.3 H Basophils % 1.2 Absolute Neutrophils 5.2 Absolute Lymphocytes 1.2 Absolute Monocytes 0.4 Absolute Eosinophils 0.5 Absolute Basophils 0.1 Sodium 141.5 Potassium 4.1 Chloride 99 Carbon Dioxide 32 H Anion Gap 11 BUN 8 Creatinine 0.81 Est GFR ( Amer) > 60 Est GFR (Non-Af Amer) > 60 Glucose 98 Calcium 8.9 Impressions: Drainage Catheter Insertion 12/21/16 00:00 IMPRESSION: Successful CT-guided drain placement for abscess in the right lower quadrant. Abdomen/Pelvis CT 12/26/16 00:00 IMPRESSION: Significant decrease in size of the right deep abdominal abscess compared to 12/21/2016. Catheter has been pulled back, the tip of the catheter is ventral to the residual fluid collection. Catheter appears kinked on sagittal image 36 Assessment & Plan - Plan Summary Plan Summary: Pancreatitis with Pseudocyst s/p percutaneosu drainage [place] on IV diflucan DC plan Thursday or Thursday to be followed by primary surgeon
[2016-12-27] MEDS ORDERED: FUROSEMIDE 40 MG TABLET PO ONE (09:45)
--- NOTE | 2016-12-27 09:50 | PDOC PROGRESS REPORT ---
Subjective Progress Note for:: 12/27/16 Subjective:: Complains of pain in the right lower quadrant. Physical Exam Vital Signs: Temp Pulse Resp BP Pulse Ox 98.8 F 65 16 101/56 L 98 12/27/16 07:58 12/27/16 09:10 12/27/16 09:10 12/27/16 07:58 12/27/16 09:10 Intake & Output 12/26/16 12/27/16 12/28/16 06:59 06:59 06:59 Intake Total 3650 200 Output Total 10 Balance 3640 200 Weight 94.801 kg 91.081 kg General appearance: PRESENT: no acute distress Eye exam: PRESENT: conjunctiva pink. ABSENT: scleral icterus Mouth exam: PRESENT: moist, tongue midline Neck exam: ABSENT: JVD Respiratory exam: PRESENT: clear to auscultation ryan. ABSENT: rales, rhonchi, wheezes Cardiovascular exam: PRESENT: RRR. ABSENT: diastolic murmur, rubs, systolic murmur GI/Abdominal exam: PRESENT: normal bowel sounds, soft, tenderness - Right lower quadrant tenderness. ABSENT: distended, guarding, mass, organolmegaly, rebound Extremities exam: ABSENT: calf tenderness, clubbing, pedal edema Neurological exam: PRESENT: alert, awake, oriented to person, oriented to place , oriented to time, oriented to situation, CN II-XII grossly intact. ABSENT: motor sensory deficit Psychiatric exam: PRESENT: appropriate affect Skin exam: PRESENT: dry, intact, warm. ABSENT: cyanosis, rash Results Laboratory Results: 12/27/16 04:38 12/27/16 04:38 12/27/16 12/27/16 04:38 04:38 WBC 7.4 RBC 3.31 L Hgb 9.8 L Hct 28.9 L MCV 88 MCH 29.6 MCHC 33.8 RDW 15.0 H Plt Count 246 Seg Neutrophils % 70.0 Lymphocytes % 16.7 Monocytes % 5.8 Eosinophils % 6.3 H Basophils % 1.2 Absolute Neutrophils 5.2 Absolute Lymphocytes 1.2 Absolute Monocytes 0.4 Absolute Eosinophils 0.5 Absolute Basophils 0.1 Sodium 141.5 Potassium 4.1 Chloride 99 Carbon Dioxide 32 H Anion Gap 11 BUN 8 Creatinine 0.81 Est GFR ( Amer) > 60 Est GFR (Non-Af Amer) > 60 Glucose 98 Calcium 8.9 Impressions: Drainage Catheter Insertion 12/21/16 00:00 IMPRESSION: Successful CT-guided drain placement for abscess in the right lower quadrant. Abdomen/Pelvis CT 12/26/16 00:00 IMPRESSION: Significant decrease in size of the right deep abdominal abscess compared to 12/21/2016. Catheter has been pulled back, the tip of the catheter is ventral to the residual fluid collection. Catheter appears kinked on sagittal image 36 Assessment & Plan - Diagnosis (1) Inna albicans infection Is this a current diagnosis for this admission?: Yes Plan: Patient has an abscess in the right lower quadrant growing Inna. Continue with drain. Antifungal treatment was changed from Diflucan to micafungin. Patient had previously been treated with Diflucan at [place]. She is growing Inna from her urine culture. The Inna from the wound culture has been sent out for testing on the Inna to make certain that it is sensitive to Diflucan. (2) Hydronephrosis Qualifiers: Qualified Code(s): N13.30 - Unspecified hydronephrosis Is this a current diagnosis for this admission?: Yes Plan: Urology has evaluated the patient. The question is whether or not to remove the stent. Given the local inflammation this will be left in for now given that she does have some hydronephrosis on the right. It will eventually need to be removed because of the Inna infection. (3) Depression Is this a current diagnosis for this admission?: Yes Plan: Continue with Wellbutrin and Prozac. (4) Chronic pain Is this a current diagnosis for this admission?: Yes Plan: Continue with OxyContin. (5) Intra-abdominal fluid collection Is this a current diagnosis for this admission?: Yes Plan: This was initially thought to possibly be a ruptured appendix however it looks like this is not related to the appendix at all. (6) Urinary tract infection Qualifiers: Qualified Code(s): N39.0 - Urinary tract infection, site not specified Is this a current diagnosis for this admission?: Yes Plan: The patient is growing Inna from her urine. Continue with micafungin - Time Time Spent with patient: 25-34 minutes - Inpatient Certification Medical Necessity: Need for IV Antibiotics
[2016-12-27] MEDS: GUAIFENESIN 600 MG TABLET.SA PO SCH ×2 (10:08→23:15)
[2016-12-27] MEDS: FLUOXETINE HCL 20 MG CAPSULE PO SCH (10:08)
[2016-12-27] MEDS: OXYCODONE HCL SR 10 MG TABLET PO SCH ×2 (10:08→23:17)
[2016-12-27] MEDS: DOCUSATE SODIUM 100 MG CAPSULE PO SCH (10:35)
[2016-12-27] MEDS: KETOROLAC TROMETHAMINE INJ/PF 30 MG/1 ML SDV IV SCH ×2 (14:34→23:16)
[2016-12-27] MEDS: TAMSULOSIN HCL 0.4 MG CAP.SR.24H PO SCH (17:35)
[2016-12-27] MEDS: MICAFUNGIN SODIUM 100 MG in NORMAL SALINE 100 ML IV SCH (23:08)
[2016-12-28] MEDS: PIPERACILLIN SODIUM/TAZOBACTAM 3.375 GM in NORMAL SALINE 100 ML IV SCH ×2 (00:40→05:41)
[2016-12-28] MEDS: KETOROLAC TROMETHAMINE INJ/PF 30 MG/1 ML SDV IV SCH ×3 (05:40→21:06)
[2016-12-28] MEDS: BUPROPION HCL 100 MG TABLET PO SCH ×3 (05:40→21:06)
[2016-12-28] MEDS: DOCUSATE SODIUM 100 MG CAPSULE PO SCH ×3 (07:54→17:39)
[2016-12-28] MEDS: GABAPENTIN 300 MG CAPSULE PO SCH ×2 (08:12→21:05)
[2016-12-28] MEDS: GUAIFENESIN 600 MG TABLET.SA PO SCH ×2 (11:38→21:05)
[2016-12-28] MEDS: FLUOXETINE HCL 20 MG CAPSULE PO SCH (11:38)
[2016-12-28] MEDS: OXYCODONE HCL SR 10 MG TABLET PO SCH ×2 (11:39→21:07)
--- NOTE | 2016-12-28 13:21 | PDOC PROGRESS REPORT ---
Subjective Progress Note for:: 12/28/16 Subjective:: Complains of pain in the right lower quadrant. Physical Exam Vital Signs: Temp Pulse Resp BP Pulse Ox 98.0 F 62 16 99/46 L 95 12/28/16 12:09 12/28/16 12:09 12/28/16 12:09 12/28/16 12:09 12/28/16 12:09 Intake & Output 12/27/16 12/28/16 12/29/16 06:59 06:59 06:59 Intake Total 200 890 Balance 200 890 Weight 91.081 kg 90.3 kg General appearance: PRESENT: no acute distress Eye exam: PRESENT: conjunctiva pink. ABSENT: scleral icterus Mouth exam: PRESENT: moist, tongue midline Neck exam: ABSENT: JVD Respiratory exam: PRESENT: clear to auscultation ryan. ABSENT: rales, rhonchi, wheezes Cardiovascular exam: PRESENT: RRR. ABSENT: diastolic murmur, rubs, systolic murmur GI/Abdominal exam: PRESENT: normal bowel sounds, soft, tenderness - Right lower quadrant, other - Drain in place the right lower quadrant.. ABSENT: distended, guarding, mass, organolmegaly, rebound Extremities exam: ABSENT: calf tenderness, clubbing, pedal edema Neurological exam: PRESENT: alert, awake, oriented to person, oriented to place , oriented to time, oriented to situation, CN II-XII grossly intact. ABSENT: motor sensory deficit Psychiatric exam: PRESENT: appropriate affect Skin exam: PRESENT: dry, intact, warm. ABSENT: cyanosis, rash Results Laboratory Results: 12/27/16 04:38 12/27/16 04:38 Impressions: Drainage Catheter Insertion 12/21/16 00:00 IMPRESSION: Successful CT-guided drain placement for abscess in the right lower quadrant. Abdomen/Pelvis CT 12/26/16 00:00 IMPRESSION: Significant decrease in size of the right deep abdominal abscess compared to 12/21/2016. Catheter has been pulled back, the tip of the catheter is ventral to the residual fluid collection. Catheter appears kinked on sagittal image 36 Assessment & Plan - Diagnosis (1) Inna albicans infection Is this a current diagnosis for this admission?: Yes Plan: Patient has an abscess in the right lower quadrant growing Inna. Continue with drain. Antifungal treatment was changed from Diflucan to micafungin. Patient had previously been treated with Diflucan at [facility]. She is growing Inna from her urine culture. The Inna from the wound culture has been sent out for testing on the Inna to make certain that it is sensitive to Diflucan. (2) Hydronephrosis Qualifiers: Hydronephrosis type: unspecified Qualified Code(s): N13.30 - Unspecified hydronephrosis Is this a current diagnosis for this admission?: Yes Plan: Urology has evaluated the patient. The question is whether or not to remove the stent. Given the local inflammation this will be left in for now given that she does have some hydronephrosis on the right. It will eventually need to be removed because of the Inna infection. (3) Depression Is this a current diagnosis for this admission?: Yes Plan: Continue with Wellbutrin and Prozac. (4) Chronic pain Is this a current diagnosis for this admission?: Yes Plan: Continue with OxyContin. (5) Intra-abdominal fluid collection Is this a current diagnosis for this admission?: Yes Plan: This was initially thought to possibly be a ruptured appendix however it looks like this is not related to the appendix at all. (6) Urinary tract infection Qualifiers: Urinary tract infection type: site unspecified Hematuria presence: without hematuria Qualified Code(s): N39.0 - Urinary tract infection, site not specified Is this a current diagnosis for this admission?: Yes Plan: The patient is growing Inna from her urine. Continue with micafungin - Time Time Spent with patient: 25-34 minutes - Inpatient Certification Medical Necessity: Need for IV Antibiotics
[2016-12-28] MEDS: ONDANSETRON HCL INJ/PF 4 MG/2 ML SDV IV PRN (13:58)
--- NOTE | 2016-12-28 15:28 | PDOC PROGRESS REPORT ---
Subjective Progress Note for:: 12/28/16 Subjective:: pain minimal Physical Exam Vital Signs: Temp Pulse Resp BP Pulse Ox 98.0 F 62 16 99/46 L 95 12/28/16 12:09 12/28/16 12:09 12/28/16 12:09 12/28/16 12:09 12/28/16 12:09 Intake & Output 12/27/16 12/28/16 12/29/16 06:59 06:59 06:59 Intake Total 200 890 Balance 200 890 Weight 91.081 kg 90.3 kg GI/Abdominal exam: PRESENT: other - soft abdomen drain minimal Results Laboratory Results: 12/27/16 04:38 12/27/16 04:38 Impressions: Drainage Catheter Insertion 12/21/16 00:00 IMPRESSION: Successful CT-guided drain placement for abscess in the right lower quadrant. Abdomen/Pelvis CT 12/26/16 00:00 IMPRESSION: Significant decrease in size of the right deep abdominal abscess compared to 12/21/2016. Catheter has been pulled back, the tip of the catheter is ventral to the residual fluid collection. Catheter appears kinked on sagittal image 36 Assessment & Plan - Plan Summary Plan Summary: Pseudopancreatic cyst s/p perc drainage resolving dc am tith drain in place to follow with primary surgeon in [facility] this Thursday
[2016-12-28] MEDS: TAMSULOSIN HCL 0.4 MG CAP.SR.24H PO SCH (17:39)
[2016-12-28] MEDS: HYDROMORPHONE HCL 2 MG TABLET PO PRN ×2 (17:43→23:45)
[2016-12-28] MEDS: MICAFUNGIN SODIUM 100 MG in NORMAL SALINE 100 ML IV SCH (21:06)
--- NOTE | 2016-12-28 21:13 | DISCHARGE SUMMARY E ---
Discharge Summary NAME: AZAM BURNHAM : 1975 AGE: 41Y ADMITTED: 12/21/2016 DISCHARGED: ADMITTING DIAGNOSIS: LARGE PSEUDO PANCREATIC CYST, STATUS POST ERCP AND STONE REMOVAL, VERY SYMPTOMATIC DUE TO PANCREATIC CYST. HOSPITAL COURSE: The patient was admitted for pain management. She underwent a percutaneous drainage. There was a questionable fundus or yeast josselin in the fluid for which she has been getting Diflucan. She is doing a whole lot better now. Pain is minimal. She is tolerating diet. PLAN: She will follow with primary surgeon in [facility]. As of now, the patient is doing well with minimal drainage. She will go home with pain medication. Followup in [facility] next Thursday. DICTATING PHYSICIAN: MISHEL FOLEY M.D. [id number] PHY#: [id number] ID: [id number] JOB#: [id number] ACCT: [id number] cc:Roxie MANUEL M.D. >
[2016-12-29] MEDS: BUPROPION HCL 100 MG TABLET PO SCH (06:22)
[2016-12-29] MEDS: HYDROMORPHONE HCL 2 MG TABLET PO PRN (06:23)
[2016-12-29 07:06] LABS: ABSOLUTE BASOPHILS # (AUTO) 0.1 10^3/uL (0.0-0.2); ABSOLUTE EOSINOPHILS # (AUTO) 0.5 10^3/uL (0.0-0.6); ABSOLUTE LYMPHOCYTES (AUTO) 1.1 10^3/uL (0.5-4.7); ABSOLUTE MONOCYTES (AUTO) 0.5 10^3/uL (0.1-1.4); ABSOLUTE NEUT (AUTO) 5.6 10^3/uL (1.7-8.2); HEMATOCRIT 32.7 % (36.0-47.0); HGB HCT DIFFERENCE 0.3; LYMPHOCYTES % (AUTO) 14.6 % (13-45); MEAN CORPUSCULAR HEMOGLOBIN 29.2 pg (27.0-33.4); MEAN CORPUSCULAR HGB CONC 33.6 g/dL (32.0-36.0); MEAN CORPUSCULAR VOLUME 87 fl (80-97); MONOCYTES % (AUTO) 6.7 % (3-13); RED BLOOD COUNT 3.76 10^6/uL (3.72-5.28); RED CELL DISTRIBUTION WIDTH 15.3 % (11.5-14.0); SEGMENTED NEUTROPHILS % (AUTO) 71.7 % (42-78); WHITE BLOOD COUNT 7.8 10^3/uL (4.0-10.5)
--- NOTE | 2016-12-29 07:08 | DISCHARGE SUMMARY E ---
Discharge Summary NAME: AZAM BURNHAM : 1975 AGE: 41Y ADMITTED: 12/21/2016 DISCHARGED: 12/29/2016 HOSPITAL COURSE: Patient admitted for complicated pancreatitis, pancreatic pseudocyst. Patient basically had a cholecystectomy and then ERCP done with ERCP resulting in pancreatitis and also had a PSEUDOCYST for which he was admitted here. It was drained percutaneously and then the labs revealed josselin albicans for which she was started on IV antibiotic and then was treated with Diflucan drain and subsequently revealed the fluid collection was much smaller. The patient was relatively feeling better, the pain and symptoms. She is being discharged today to be followed in primary surgeon's office tomorrow. DISCHARGE MEDICATIONS: Include Diflucan for 2 weeks and pain medications. DICTATING PHYSICIAN: MISHEL FOLEY M.D. [id number] PHY#: [id number] ID: [id number] JOB#: [id number] ACCT: [id number] cc:Roxie MANUEL M.D. > MTDD
[2016-12-29 07:24] LABS: ANION GAP 12 (5-19); BLOOD UREA NITROGEN 16 mg/dL (7-20); CALCIUM 9.3 mg/dL (8.4-10.2); CARBON DIOXIDE 27 mmol/L (22-30); CHLORIDE 103 mmol/L (98-107); CREATININE RESULT 0.82 mg/dL (0.52-1.25); GLUCOSE 84 mg/dL (75-110); POTASSIUM 4.5 mmol/L (3.6-5.0); SODIUM 141.5 mmol/L (137-145)
[2016-12-29 09:58] VITALS: BP 104/61
== END 2016-12-29 10:37 | disposition home or self-care (01) | DRG 439 ==
LOC: ER 04:36 → EH 08:17 → UNDOADMIN 08:17 → EH 09:50 → 2N 09:50 → EH 09:54
PROVIDERS: ADMIT Surgery; ATTEND Surgery
PROC: 0W9J30Z Drainage of Pelvic Cavity with Drainage Device, Percutaneous Approach (ICD-10-PCS; principal; 2016-12-21)
PROC: 3E0F73Z Introduction of Anti-inflammatory into Respiratory Tract, Via Natural or Artificial Opening (ICD-10-PCS; 2016-12-24)
DX: K86.3 Pseudocyst of pancreas (principal); N13.30 Unspecified hydronephrosis; F11.20 Opioid dependence, uncomplicated; N39.0 Urinary tract infection, site not specified; F32.9 Major depressive disorder, single episode, unspecified; G89.4 Chronic pain syndrome; Z90.49 Acquired absence of other specified parts of digestive tract; Z79.899 Other long term (current) drug therapy; Z88.7 Allergy status to serum and vaccine
CPT/HCPCS: 36415; 49405; 74177; 80048; 80053; 81001; 81025; 82150; 83690; 85025; 85610; 85730; 87040; 87070; 87086; 87205; 94640; 94667; 94668; 94799; 96361; 96365; 96375; 99285; C1729; C1769; C1894; J0696; J1170; J1885; J2248; J2250; J2405; J2543; J3010; J3490; J7030

== ENCOUNTER 2017-02-03 22:29 | Observation (INO) | payer OTHER ==
[2017-02-03 23:41] LABS: ABSOLUTE BASOPHILS # (AUTO) 0.1 10^3/uL (0.0-0.2); ABSOLUTE EOSINOPHILS # (AUTO) 0.2 10^3/uL (0.0-0.6); ABSOLUTE LYMPHOCYTES (AUTO) 2.1 10^3/uL (0.5-4.7); ABSOLUTE MONOCYTES (AUTO) 0.4 10^3/uL (0.1-1.4); EOSINOPHILS % (AUTO) 2.8 % (0-6); HEMATOCRIT 33.7 % (36.0-47.0); HEMOGLOBIN 11.5 g/dL (12.0-15.5); HGB HCT DIFFERENCE 0.8; LYMPHOCYTES % (AUTO) 31.6 % (13-45); MEAN CORPUSCULAR HEMOGLOBIN 28.9 pg (27.0-33.4); MEAN CORPUSCULAR VOLUME 85 fl (80-97); MONOCYTES % (AUTO) 6.1 % (3-13); RED BLOOD COUNT 3.97 10^6/uL (3.72-5.28); RED CELL DISTRIBUTION WIDTH 16.7 % (11.5-14.0); SEGMENTED NEUTROPHILS % (AUTO) 58.5 % (42-78); WHITE BLOOD COUNT 6.7 10^3/uL (4.0-10.5)
[2017-02-03 23:53] LABS: ALANINE AMINOTRANSFERASE 39 U/L (9-52); ALBUMIN 4.2 g/dL (3.5-5.0); ALKALINE PHOSPHATASE 84 U/L (38-126); ANION GAP 13 (5-19); ASPARTATE AMINO TRANSFERASE 18 U/L (14-36); BILIRUBIN,DIRECT 0.4 mg/dL (0.0-0.4); BILIRUBIN,TOTAL 0.4 mg/dL (0.2-1.3); BLOOD UREA NITROGEN 15 mg/dL (7-20); CARBON DIOXIDE 27 mmol/L (22-30); CHLORIDE 102 mmol/L (98-107); GLUCOSE 104 mg/dL (75-110); LIPASE 77.2 U/L (23-300); SODIUM 141.5 mmol/L (137-145); TOTAL PROTEIN 7.1 g/dL (6.3-8.2)
[2017-02-04] MEDS ORDERED: ONDANSETRON HCL INJ/PF 4 MG/2 ML SDV IV ONE (00:25)
[2017-02-04] MEDS ORDERED: NORMAL SALINE 1000 ML 1,000 ML IV ONE (00:25)
--- NOTE | 2017-02-04 00:28 | ER Document Report ---
ED General - General Chief Complaint: Abdominal Pain Stated Complaint: ABDOMINAL PAIN Time Seen by Provider: 02/03/17 23:13 Notes: Patient is a 41-year-old female with a complicated past medical history including a laprascopic cholecystectomy in July 2016 subsequently having a common bile duct stone that had to be dislodged by ERCP but which subsequently resulted in pancreatitis. She then apparently subsequently developed a pancreatic abscess but was unable to be drained. She was hospitalized in December of this year for a right lower quadrant intra-abdominal abscess that was found to go to [place], originally this was thought to be secondary to a ruptured appendicitis but subsequently this was determined to not be the source. She was treated with antifungal and a percutaneous drain and eventually was able to be discharged home. She also has a history of a ureteral stent placed in the right ureter secondary to comp occasions from original procedures at [facility]. Patient presents today complaining of 3-4 days of progressively worsening generalized abdominal pain most localized to her lower abdomen. Does describe it as a dull, constant throbbing pain that has gotten progressively worse over this period of time but significantly worse in the last 6 hours which is what prompted her come to the emergency department. She states she has had anorexia and nausea but has not vomited. No fever or constitutional symptoms. She has not seen her primary doctor regarding today's concerns. TRAVEL OUTSIDE OF THE [place] IN LAST 30 DAYS: No - Related Data Allergies/Adverse Reactions: typhoid vaccine [Typhoid Vaccine] Allergy (Intermediate, Verified 12/21/16 04:39 ) Facial edema and rash Past Medical History - General Information source: Patient - Social History Smoking Status: Never Smoker Frequency of alcohol use: None Drug Abuse: None Lives with: Family Family History: Reviewed & Not Pertinent Patient has suicidal ideation: No Patient has homicidal ideation: No - Past Medical History Cardiac Medical History: Denies: Hx Coronary Artery Disease, Hx Heart Attack, Hx Hypertension - RUNS LOW Pulmonary Medical History: Denies: Hx Asthma, Hx Bronchitis, Hx COPD, Hx Pneumonia Neurological Medical History: Denies: Hx Cerebrovascular Accident, Hx Seizures Endocrine Medical History: Denies: Hx Diabetes Mellitus Type 1, Hx Diabetes Mellitus Type 2 Renal/ Medical History: Denies: Hx End Stage Renal Disease, Hx Peritoneal Dialysis Musculoskeltal Medical History: Denies Hx Arthritis Psychiatric Medical History: Reports: Hx Depression Past Surgical History: Reports: Hx Cholecystectomy, Hx Genitourinary Surgery - right kidneys stent, Other - Laparoscopic cholecystectomy in July of this year at the [facility]. Denies: Hx Hysterectomy - Immunizations Hx Diphtheria, Pertussis, Tetanus Vaccination: Yes Review of Systems - Review of Systems Notes: Constitutional: Negative for fever. HENT: Negative for sore throat. Eyes: Negative for visual changes. Cardiovascular: Negative for chest pain. Respiratory: Negative for shortness of breath. Gastrointestinal: Positive for abdominal pain and nausea Genitourinary: Negative for dysuria. Musculoskeletal: Negative for back pain. Skin: Negative for rash. Neurological: Negative for headaches, weakness or numbness. 10 point ROS negative except as marked above and in HPI. Physical Exam - Vital signs Vitals: Pulse Resp BP Pulse Ox 67 16 109/74 98 02/03/17 23:06 02/03/17 23:06 02/03/17 23:06 02/03/17 23:06 Interpretation: Normal Notes: PHYSICAL EXAMINATION: GENERAL: Appears moderately uncomfortable but no acute distress HEAD: Atraumatic, normocephalic. EYES: Pupils equal round and reactive to light, extraocular movements intact, sclera anicteric, conjunctiva are normal. ENT: nares patent, oropharynx clear without exudates. Moist mucous membranes. NECK: Normal range of motion, supple without lymphadenopathy LUNGS: Breath sounds clear to auscultation bilaterally and equal. No wheezes rales or rhonchi. HEART: Regular rate and rhythm without murmurs ABDOMEN: Soft, focal right upper and right lower quadrant abdominal tenderness without rebound or guarding. Right CVA tenderness. Otherwise no localized tenderness. No abdominal distention. EXTREMITIES: Normal range of motion, no pitting or edema. No cyanosis. NEUROLOGICAL: No focal neurological deficits. Moves all extremities spontaneously and on command. PSYCH: Normal mood, normal affect. SKIN: Warm, Dry, normal turgor, no rashes or lesions noted. Course - Re-evaluation Re-evalutation: 02/04/17 00:27 Patient presents with 4 days of progressively worsening abdominal pain, anorexia nausea with a history of a prior known pancreatic cyst as well as a known intra-abdominal abscess that has caused an obstruction of the right kidney in the past. She is overall nontoxic appearance but does have focal tenderness of the right lower and right upper quadrant. She is status post a cholecystectomy and had a percutaneous drainage of an abscess in the right lower quadrant. Initial vitals are overall unremarkable. Laboratories unremarkable. Will proceed with CT abdomen pelvis to further evaluate the known conditions see if any of these are potentially contributing to patient's presentation. 02/04/17 02:40 CT scan of the abdomen and pelvis does show a 7.5 cm intra-abdominal abscess that is expanded since the patient was discharged in mid December. I consulted the surgeon who agrees to admit the patient and plan for interventional drainage again. He has also requested a CT with just oral contrast to evaluate for possible fistulous tract. - Vital Signs Vital signs: Temp Pulse Resp BP Pulse Ox 97.8 F 67 16 109/74 98 02/03/17 23:08 02/03/17 23:06 02/03/17 23:06 02/03/17 23:06 02/03/17 23:06 - Laboratory Result Diagrams: 02/03/17 23:30 02/03/17 23:30 Laboratory results interpreted by me: 02/03/17 02/03/17 23:22 23:30 Hgb 11.5 L Hct 33.7 L RDW 16.7 H Urine Blood LARGE H Ur Leukocyte Esterase SMALL H - Diagnostic Test Radiology reviewed: Reports reviewed Discharge - Discharge Clinical Impression: Intra-abdominal abscess Abdominal pain Qualifiers: Abdominal location: generalized Qualified Code(s): R10.84 - Generalized abdominal pain Condition: Fair Disposition: ADMITTED INPATIENT Admitting Provider: Surgicalist Unit Admitted: Surgical Floor
[2017-02-04] MEDS: MORPHINE SULFATE 10 MG/ML INJ IV PRN ×2 (00:42→03:00)
--- NOTE | 2017-02-04 02:09 | RADIOLOGY REPORT (SQ) ---
EXAM DESCRIPTION: CT ABD/PELVIS WITH IV ONLY COMPLETED DATE/TIME: 02/04/2017 1:35 am REASON FOR STUDY: eval pancreatic mass, intrab abscess COMPARISON: 12/26/2016. TECHNIQUE: CT scan of the abdomen and pelvis performed using helical scanning technique with dynamic intravenous contrast injection. No oral contrast. Images reviewed with lung, soft tissue, and bone windows. Reconstructed coronal and sagittal MPR images reviewed. Delayed images for evaluation of the urinary system also acquired. All images stored on PACS. All CT scanners at this facility use dose modulation, iterative reconstruction, and/or weight based d osing when appropriate to reduce radiation dose to as low as reasonably achievable (ALARA). [facility]: Dose Right [facility]: CareDose [facility]: Dose Right [facility]: Teradose 4D [facility]: FoodyDirect CONTRAST TYPE AND DOSE: contrast/concentration: Isovue 370.00 mg/ml; Total Contrast Delivered: 91.0 ml; Total Saline Delivered: 70.0 ml RENAL FUNCTION: None required. The patient is less than 50 years old. RADIATION DOSE: CT Rad equipment meets quality standard of care and radiation dose reduction techniq ues were employed. CTDIvol: 11.6 - 11.9 mGy. DLP: 1275 mGy-cm.. LIMITATIONS: None. FINDINGS: LOWER CHEST: No significant findings. No nodules or infiltrates. LIVER: Normal size. No masses. 0.6 cm diameter common duct. No intrahepatic ductal dilation. Stabl e. SPLEEN: Normal size. No focal lesions. PANCREAS: No masses. No significant calcifications. No adjacent inflammation or peripancreatic fluid collections. Pancreatic duct not dilated. GALLBLADDER: Surgically absent. ADRENAL GLANDS: No significant masses or asymmetry. RIGHT KIDNEY AND URETER: No solid masses. No significant calcifications. Mild right hydronephrosi s pattern. mRight ureteral stent. LEFT KIDNEY AND URETER: No solid masses. No significant calcifications. No hydronephrosis or hydr oureter. AORTA AND VESSELS: No aneurysm. No dissection. Renal arteries, SMA, celiac without stenosis. RETROPERITONEUM: No retroperitoneal adenopathy, hemorrhage or masses. BOWEL AND PERITONEAL CAVITY: Mildly increased 7.2 by 2.5 x 3.7 cm abscess/cystic mass of the right pa racentral abdomen compared with prior exam, 12/26/2016 at which time it measured 6.4 cm. APPENDIX: Not visualized. PELVIS: No mass. No free fluid. Normal bladder. ABDOMINAL WALL: No masses. No hernias. BONES: Moderate L5-S1 vacuum disc desiccation. OTHER: No other significant finding. IMPRESSION: 1. Mildly increased 7.2 cm abscess of the right paracentral abdomen. 2. Stable right ureteral stent and mild right hydronephrosis pattern. TECHNICAL DOCUMENTATION: JOB ID: [id number] Quality ID # [id number]: Final reports with documentation of one or more dose reduction techniques (e.g., Au tomated exposure control, adjustment of the mA and/or kV according to patient size, use of iterative reconstruction technique) 2010 [employer]- All Rights Reserved
[2017-02-04 02:41] LABS: APPEARANCE,URINE CLEAR; BILIRUBIN,URINE NEGATIVE (NEGATIVE); GLUCOSE, URINE NEGATIVE (NEGATIVE); KETONES,URINE NEGATIVE (NEGATIVE); LEUKOCYTE ESTERASE,URINE SMALL (NEGATIVE); NITRITE,URINE NEGATIVE (NEGATIVE); PROTEIN,URINE NEGATIVE (NEGATIVE); URINE SPECIFIC GRAVITY 1.009; UROBILINOGEN,URINE NEGATIVE mg/dL (<2.0)
[2017-02-04] MEDS ORDERED: MICAFUNGIN SODIUM INJ/PF 100 MG VIAL IV ONE (02:41)
[2017-02-04] MEDS ORDERED: PIPERACILLIN/TAZOBACTAM 3.375 GM VIAL IV ONE (02:42)
[2017-02-04] MEDS: HYDROMORPHONE HCL INJ/PF 2 MG/ML AMPULE IV PRN ×8 (04:25→22:09)
--- NOTE | 2017-02-04 06:05 | RADIOLOGY REPORT (SQ) ---
EXAM DESCRIPTION: CT ABD/PELVIS ORAL ONLY COMPLETED DATE/TIME: 02/04/2017 4:52 am REASON FOR STUDY: eval fistula COMPARISON: 12/21/2016. TECHNIQUE: CT scan of the abdomen and pelvis performed without intravenous or oral contrast. Images reviewed with lung, soft tissue, and bone windows. Reconstructed coronal and sagittal MPR images revi ewed. All images stored on PACS. All CT scanners at this facility use dose modulation, iterative reconstruction, and/or weight based d osing when appropriate to reduce radiation dose to as low as reasonably achievable (ALARA). [facility]: Dose Right [facility]: CareDose [facility]: Dose Right [facility]: Teradose 4D [facility]: [employer] RADIATION DOSE: CT Rad equipment meets quality standard of care and radiation dose reduction techniq ues were employed. CTDIvol: 12.3 mGy. DLP: 651 mGy-cm.mGy. LIMITATIONS: None. FINDINGS: LOWER CHEST: No significant findings. No nodules or infiltrates. Small atelectasis or sca r of the left lower lobe. NON-CONTRASTED LIVER, SPLEEN, ADRENALS: Evaluation limited by lack of IV contrast. No identified sign ificant masses. 0.6 cm diameter common duct. PANCREAS: No masses. No peripancreatic inflammatory changes. GALLBLADDER: Surgically absent. RIGHT KIDNEY AND URETER: No suspicious masses. Assessment limited by lack of IV contrast. No signif icant calcifications. No hydronephrosis or hydroureter. Right ureteral stent. LEFT KIDNEY AND URETER: No suspicious masses. Assessment limited by lack of IV contrast. No signifi cant calcifications. No hydronephrosis or hydroureter. AORTA AND RETROPERITONEUM: No aneurysm. No retroperitoneal masses or adenopathy. BOWEL AND PERITONEAL CAVITY: After orally and administered contrast 80 7.2 x 4.9 x 3.7 cm non-opacif ied fluid-filled masses in the right paracentral pelvis with a bilobed component at its central aspec t, image 56 of series 2. No free fluid. APPENDIX: Not visualized. PELVIS, BLADDER, AND ABDOMINAL WALL:No abnormal masses. No free fluid. Bladder normal. BONES: No significant findings. OTHER: No other significant finding. IMPRESSION: 1. A 7.2 cm non-opacified cystic mass of the right paracentral pelvis probably due to p ersistent/recurrent abscess. No bowel obstruction. No significant free fluid. 2. Right ureteral s tent and mild right hydronephrosis pattern. COMMENT: Quality ID # [id number]: Final reports with documentation of one or more dose reduction techniques (e.g., Automated exposure control, adjustment of the mA and/or kV according to patient size, use of iterative reconstruction technique) TECHNICAL DOCUMENTATION: JOB ID: [id number] [employer]- All Rights Reserved
[2017-02-04] MEDS ORDERED: FENTANYL CITRATE INJ/PF 250 MCG/5 ML AMPULE ONE (14:44)
[2017-02-04] MEDS ORDERED: MIDAZOLAM 2 MG/2 ML INJ ONE (14:45)
[2017-02-04 16:44] LABS: PROTHROMBIN TIME 13.1 SEC (11.4-15.4)
[2017-02-04] MEDS ORDERED: CALCIUM CARBONATE 500 MG TAB.CHEW PO PRN (16:46)
--- NOTE | 2017-02-04 16:50 | RADIOLOGY REPORT (SQ) ---
EXAM DESCRIPTION: CT GUIDED PERCUT DRAIN W/CATH COMPLETED DATE/TIME: 02/04/2017 3:37 pm REASON FOR STUDY: ABSCESS COMPARISON: CT abdomen pelvis 02/04/2017, 12/26/2016, 12/21/2016 TECHNIQUE: CT guided right lobe liver biopsy with CT fluoroscopy and conscious sedation. RADIATION DOSE: CT Rad equipment meets quality standard of care and radiation dose reduction techniq ues were employed. CTDIvol: 4.0 - 19.0 mGy. DLP: 392 mGy-cm. mGy. LIMITATIONS: None. FINDINGS: Procedure was discussed with the patient and the patient agreed to the procedure. CT scan amanda was performed to localize the approach to the right lower quadrant abscess drainage. IV pain control was administered and physician direction by the registered nurse using 75 micrograms of fentanyl. Physiologic monitoring was provided before, during, and after sedation. The total pain c ontrol time was 15 minutes. Documentation face to face time, the performing proceduralist, spent monitoring the patient: 15minute s. After sterile skin prep and local lidocaine for skin and deep tissue anesthesia, an 18 gauge single w all needle was used to access the right lower quadrant peritoneal cavity abscess. Aspiration of the needle yielded purulent green material, sent to the lab for Gram stain culture and sensitivity. At t his point, a 0.38 guidewire was placed into the abscess cavity, the needle was removed. Tract was di lated with a 7 Djib[place]ian dilator and an 8 [place]ib[place]ian locking pigtail catheter was placed into the abscess ca vity. Catheter coiled in the abscess cavity, catheter was locked and further purulent material was a spirated. The cavity was flushed with sterile saline, catheter was placed to a vacuum accordion bag. Catheter was secured to the patient's skin with highly adhesive dressing. No immediate complications. All CT scanners at this facility use dose modulation, iterative reconstruction, and/or weight based d osing when appropriate to reduce radiation dose to as low as reasonably achievable (ALARA). [facility]: Dose Right [facility]: CareDose [facility]: Dose Right [facility]: Teradose 4D [facility]: [employer] IMPRESSION: CT GUIDED RIGHT LOWER QUADRANT PERITONEAL ABSCESS DRAINAGE WITH 8 [place] LOCKING PIGTAIL CATHETER. SPECIMEN OF PURULENT MATERIAL WAS SENT THE LAB FOR GRAM STAIN CULTURE AND SENSITIVITY. COMMENT: Patient medication list reviewed:Yes- Quality ID# [id number]:Eligible professional attests to docu menting in the medical record they obtained, updated, or reviewed the patient's current medications.. Quality ID 145: Final reports for procedures using fluoroscopy that document radiation exposure maddison joaquin, or exposure time and number of fluorographic images (if radiation exposure indices are not avail able) TECHNICAL DOCUMENTATION: JOB ID: [id number] Quality ID # [id number]: Final reports with documentation of one or more dose reduction techniques (e.g., Au tomated exposure control, adjustment of the mA and/or kV according to patient size, use of iterative reconstruction technique) 2010 [employer]- All Rights Reserved
[2017-02-04 17:03] LABS: PARTIAL THROMBOPLASTIN TIME 27.6 SEC (23.5-35.8)
[2017-02-04] MEDS: OXYCODONE HCL SR 10 MG TABLET PO SCH (17:42)
[2017-02-04] MEDS: SUCRALFATE 1 GM TABLET PO SCH (17:43)
[2017-02-04] MEDS: ACETAMINOPHEN 325 MG TABLET PO SCH (17:43)
[2017-02-04] MEDS: TAMSULOSIN HCL 0.4 MG CAP.SR.24H PO SCH (17:44)
[2017-02-04] MEDS ORDERED: INFLUENZA ADLT QUAD (36MOS+) 2017-18 VAC 0.5 ML SYR IM PRN (17:58)
--- NOTE | 2017-02-04 20:34 | PDOC H&P ---
History of Present Illness Admission Date/PCP: 02/04/17 02:50 History of Present Illness: This is a 41 year old female with a prior history of previously-drained post- cholecystectomy and post-ERCP intra-abdominal fluid-collection who is admitted via the ER with 'recurrent abdominal abscess' diagnosed on CT. She apparently had laparoscopic cholecystectomy in July (6 months ago) at the [facility] and subsequently developed pancreatitis due to common bile duct stone. She was in the [facility] in August for 3 weeks 5 months ago. She claims that they tried to drain pancreatic abscess vs pseudocyst but were unable to do so. She has been having abdominal pains off and on for months now since then. She first had a CT-guided drainage of a fluid collection in her abdomen here about 6 weeks ago. She ahd the drain for 2 weeks before it was removed. She presented to the ER early this morning with abdominal pain again where a repeat CT scan of the abdomen revealed an about 7cm peritoneal abscess. She remains afebrile, has no nause aor vomiting, no diarrhea. She also has a right ureteral stent that was placed for right hydronephrosis from compression by the fluid collection when it was first diagnosed. The stent is still in place. Past Medical History Cardiac Medical History: Denies: Coronary Artery Disease, Myocardial Infarction, Hypertension - RUNS LOW Pulmonary Medical History: Denies: Asthma, Bronchitis, Chronic Obstructive Pulmonary Disease (COPD), Pneumonia Neurological Medical History: Denies: Seizures Endocrine Medical History: Denies: Diabetes Mellitus Type 1, Diabetes Mellitus Type 2 Renal/ Medical History: Denies: End Stage Renal Disease Musculoskeltal Medical History: Denies: Arthritis Psychiatric Medical History: Reports: Depression Hematology: Denies: Anemia Past Surgical History Past Surgical History: Reports: Cholecystectomy, Other - Laparoscopic cholecystectomy in July of this year at the [facility] Denies: Hysterectomy Social History Lives with: Family Smoking Status: Never Smoker Frequency of Alcohol Use: Occasional Hx Recreational Drug Use: No Drugs: None Hx Prescription Drug Abuse: No Family History Family History: Reviewed & Not Pertinent Parental Family History Reviewed: No Children Family History Reviewed: No Sibling(s) Family History Reviewed.: No Medication/Allergy Home Medications: Acetaminophen [Tylenol 325 mg Tablet] 975 mg PO BID 12/21/16 Bupropion HCl [Wellbutrin Xl 300mg 24hr Tablet] 300 mg PO DAILY 12/21/16 Fluoxetine HCl [Prozac] 80 mg PO DAILY 12/21/16 Gabapentin [Neurontin 300 mg Capsule] 300 mg PO DAILY 12/21/16 Gabapentin [Neurontin 300 mg Capsule] 600 mg PO QHS 12/21/16 Oxycodone HCl [Oxycontin] 30 mg PO Q12 12/21/16 Sucralfate [Carafate 1 gm Tablet] 1 gm PO BID 12/21/16 Tamsulosin HCl [Flomax 0.4 mg Cap.sr] 0.4 mg PO DAILY 12/21/16 Allergies/Adverse Reactions: typhoid vaccine [Typhoid Vaccine] Allergy (Intermediate, Verified 02/04/17 05:15 ) Facial edema and rash Review of Systems Constitutional: ABSENT: chills, fever(s), headache(s), weight gain, weight loss Eyes: ABSENT: visual disturbances Ears: ABSENT: hearing changes Cardiovascular: ABSENT: chest pain, dyspnea on exertion, edema, orthropnea, palpitations Respiratory: ABSENT: cough, hemoptysis Gastrointestinal: PRESENT: abdominal pain Genitourinary: ABSENT: dysuria, hematuria Musculoskeletal: ABSENT: joint swelling Integumentary: ABSENT: rash, wounds Neurological: ABSENT: abnormal gait, abnormal speech, confusion, dizziness, focal weakness, syncope Psychiatric: ABSENT: anxiety, depression, homidical ideation, suicidal ideation Endocrine: ABSENT: cold intolerance, heat intolerance, polydipsia, polyuria Hematologic/Lymphatic: ABSENT: easy bleeding, easy bruising Physical Exam Vital Signs: Temp Pulse Resp BP Pulse Ox 98.2 F 43 L 20 97/41 L 99 02/04/17 16:19 02/04/17 16:19 02/04/17 16:19 02/04/17 16:19 02/04/17 16:19 Intake & Output 02/03/17 02/04/17 02/05/17 06:59 06:59 06:59 Weight 88.9 kg General appearance: PRESENT: no acute distress, well-developed, well-nourished Head exam: PRESENT: atraumatic, normocephalic Eye exam: PRESENT: conjunctiva pink, EOMI, PERRLA. ABSENT: scleral icterus Ear exam: PRESENT: normal external ear exam Mouth exam: PRESENT: moist, tongue midline Neck exam: ABSENT: carotid bruit, JVD, lymphadenopathy, thyromegaly Respiratory exam: PRESENT: clear to auscultation ryan. ABSENT: rales, rhonchi, wheezes Cardiovascular exam: PRESENT: RRR. ABSENT: diastolic murmur, rubs, systolic murmur Pulses: PRESENT: normal dorsalis pedis pul Vascular exam: PRESENT: normal capillary refill GI/Abdominal exam: PRESENT: normal bowel sounds, soft. ABSENT: distended, guarding, mass, organolmegaly, rebound, tenderness Rectal exam: PRESENT: deferred Extremities exam: PRESENT: full ROM. ABSENT: calf tenderness, clubbing, pedal edema Neurological exam: PRESENT: alert, awake, oriented to person, oriented to place , oriented to time, oriented to situation, CN II-XII grossly intact. ABSENT: motor sensory deficit Psychiatric exam: PRESENT: appropriate affect, normal mood. ABSENT: homicidal ideation, suicidal ideation Skin exam: PRESENT: dry, intact, warm. ABSENT: cyanosis, rash Results Laboratory Results: 02/04/17 15:20 Fluid Type Cancelled Fluid Source Cancelled Fluid Color Cancelled Fluid Appearance Cancelled Fluid Viscosity Cancelled Fluid WBC Cancelled Fluid RBC Cancelled Impressions: Percutaneous Drainage 02/04/17 00:00 IMPRESSION: CT GUIDED RIGHT LOWER QUADRANT PERITONEAL ABSCESS DRAINAGE WITH 8 [address] [place]CI[place] LOCKING PIGTAIL CATHETER. SPECIMEN OF PURULENT MATERIAL WAS SENT THE LAB FOR GRAM STAIN CULTURE AND SENSITIVITY. Abdomen/Pelvis CT 02/04/17 02:37 IMPRESSION: 1. A 7.2 cm non-opacified cystic mass of the right paracentral pelvis probably due to persistent/recurrent abscess. No bowel obstruction. No significant free fluid. 2. Right ureteral stent and mild right hydronephrosis pattern. Assessment & Plan - Diagnosis (1) Intra-abdominal fluid collection Plan: The patient is admitted and will get a CT-guided drainage repeated. The exact cause of this fluid collection is still obscure. CT-guided drainage may hopefully obviate the need for an exploration otherwise she may require an exploratory laparotomy to define the pathology and treat it adequately.
[2017-02-04] MEDS ORDERED: (PENDING PHARMACY ID) (Oxycodone Hcl [Oxycontin] 30 MG) PO SCH (22:00)
[2017-02-04] MEDS: BUPROPION HCL 75 MG TABLET PO SCH (22:08)
[2017-02-04] MEDS: GABAPENTIN 300 MG CAPSULE PO SCH (22:09)
[2017-02-05] MEDS: HYDROMORPHONE HCL INJ/PF 2 MG/ML AMPULE IV PRN ×10 (00:35→23:17)
[2017-02-05] MEDS ORDERED: HYDROMORPHONE HCL INJ/PF 2 MG/ML AMPULE IV SCH (01:30)
[2017-02-05] MEDS: NORMAL SALINE 1000 ML 1,000 ML IV PRN ×3 (03:08→21:52)
[2017-02-05] MEDS: OXYCODONE HCL SR 10 MG TABLET PO SCH ×2 (07:54→17:24)
--- NOTE | 2017-02-05 08:53 | PDOC PROGRESS REPORT ---
Subjective Progress Note for:: 02/05/17 Subjective:: pain better Physical Exam Vital Signs: Temp Pulse Resp BP Pulse Ox 98.2 F 57 L 17 89/53 L 100 02/05/17 00:12 02/05/17 03:16 02/05/17 00:12 02/05/17 03:16 02/05/17 00:32 Intake & Output 02/04/17 02/05/17 02/06/17 06:59 06:59 06:59 Intake Total 2434 Balance 2434 Weight 88.9 kg GI/Abdominal exam: PRESENT: other - Soft abdomen non tender Results Laboratory Results: 02/04/17 15:20 Fluid Type Cancelled Fluid Source Cancelled Fluid Color Cancelled Fluid Appearance Cancelled Fluid Viscosity Cancelled Fluid WBC Cancelled Fluid RBC Cancelled Impressions: Percutaneous Drainage 02/04/17 00:00 IMPRESSION: CT GUIDED RIGHT LOWER QUADRANT PERITONEAL ABSCESS DRAINAGE WITH 8 [place] LOCKING PIGTAIL CATHETER. SPECIMEN OF PURULENT MATERIAL WAS SENT THE LAB FOR GRAM STAIN CULTURE AND SENSITIVITY. Abdomen/Pelvis CT 02/04/17 02:37 IMPRESSION: 1. A 7.2 cm non-opacified cystic mass of the right paracentral pelvis probably due to persistent/recurrent abscess. No bowel obstruction. No significant free fluid. 2. Right ureteral stent and mild right hydronephrosis pattern. Assessment & Plan - Plan Summary Plan Summary: S/p percu drainage of pelvic abscess doing better possible dc plan
[2017-02-05] MEDS: FLUOXETINE HCL 20 MG CAPSULE PO SCH (09:22)
[2017-02-05] MEDS: ACETAMINOPHEN 325 MG TABLET PO SCH ×2 (09:22→17:25)
[2017-02-05] MEDS: SUCRALFATE 1 GM TABLET PO SCH ×2 (09:23→17:25)
[2017-02-05] MEDS: BUPROPION HCL 75 MG TABLET PO SCH ×2 (09:23→21:45)
[2017-02-05] MEDS: GABAPENTIN 300 MG CAPSULE PO SCH ×2 (09:23→21:45)
[2017-02-05] MEDS: TAMSULOSIN HCL 0.4 MG CAP.SR.24H PO SCH (17:25)
[2017-02-06] MEDS: HYDROMORPHONE HCL INJ/PF 2 MG/ML AMPULE IV PRN ×6 (01:41→13:01)
[2017-02-06] MEDS: NORMAL SALINE 1000 ML 1,000 ML IV PRN ×2 (04:30→11:49)
[2017-02-06 05:08] LABS: ABSOLUTE BASOPHILS # (AUTO) 0.1 10^3/uL (0.0-0.2); ABSOLUTE EOSINOPHILS # (AUTO) 0.4 10^3/uL (0.0-0.6); ABSOLUTE LYMPHOCYTES (AUTO) 1.9 10^3/uL (0.5-4.7); ABSOLUTE MONOCYTES (AUTO) 0.4 10^3/uL (0.1-1.4); ABSOLUTE NEUT (AUTO) 2.4 10^3/uL (1.7-8.2); BASOPHILS % (AUTO) 1.1 % (0-2); EOSINOPHILS % (AUTO) 7.4 % (0-6); HEMATOCRIT 29.5 % (36.0-47.0); HEMOGLOBIN 9.9 g/dL (12.0-15.5); HGB HCT DIFFERENCE 0.2; LYMPHOCYTES % (AUTO) 36.9 % (13-45); MEAN CORPUSCULAR HEMOGLOBIN 29.1 pg (27.0-33.4); MEAN CORPUSCULAR HGB CONC 33.8 g/dL (32.0-36.0); MEAN CORPUSCULAR VOLUME 86 fl (80-97); RED BLOOD COUNT 3.42 10^6/uL (3.72-5.28); RED CELL DISTRIBUTION WIDTH 16.2 % (11.5-14.0); SEGMENTED NEUTROPHILS % (AUTO) 47.6 % (42-78); WHITE BLOOD COUNT 5.1 10^3/uL (4.0-10.5)
[2017-02-06 05:33] LABS: ALANINE AMINOTRANSFERASE 34 U/L (9-52); ALBUMIN 3.3 g/dL (3.5-5.0); ALKALINE PHOSPHATASE 72 U/L (38-126); ANION GAP 10 (5-19); ASPARTATE AMINO TRANSFERASE 18 U/L (14-36); BILIRUBIN,DIRECT 0.2 mg/dL (0.0-0.4); BILIRUBIN,TOTAL 0.2 mg/dL (0.2-1.3); BLOOD UREA NITROGEN 12 mg/dL (7-20); CALCIUM 8.5 mg/dL (8.4-10.2); CARBON DIOXIDE 26 mmol/L (22-30); CHLORIDE 106 mmol/L (98-107); CREATININE RESULT 0.81 mg/dL (0.52-1.25); GLUCOSE 87 mg/dL (75-110); LIPASE 91.6 U/L (23-300); POTASSIUM 4.3 mmol/L (3.6-5.0); SODIUM 141.9 mmol/L (137-145); TOTAL PROTEIN 5.6 g/dL (6.3-8.2)
[2017-02-06] MEDS: OXYCODONE HCL SR 10 MG TABLET PO SCH (05:58)
[2017-02-06] MEDS: ACETAMINOPHEN 325 MG TABLET PO SCH (09:59)
[2017-02-06] MEDS: BUPROPION HCL 75 MG TABLET PO SCH (10:00)
[2017-02-06] MEDS: FLUOXETINE HCL 20 MG CAPSULE PO SCH (10:00)
[2017-02-06] MEDS: GABAPENTIN 300 MG CAPSULE PO SCH (10:01)
[2017-02-06] MEDS: SUCRALFATE 1 GM TABLET PO SCH (10:01)
[2017-02-06 15:01] VITALS: BP 95/52
--- NOTE | 2017-02-06 16:23 | DISCHARGE SUMMARY E ---
Discharge Summary NAME: AZAM BURNHAM : 1975 AGE: 41Y ADMITTED: 02/04/2017 DISCHARGED: 02/06/2017 ADMITTING DIAGNOSIS: Pyloric abscess. DISCHARGE DIAGNOSIS: Pyloric abscess, status post CT-guided percutaneous drainage, draining well. Clinically, she is doing very well. DISCHARGE MEDICATIONS: Percocet for the pain management, only 30 tablets, and then she will follow up with the pain management clinic for continued long-term chronic pain management, and this is for acute pain only. HOSPITAL COURSE: She is a 41-year-old, apparently had a complicated course after having gallbladder surgery and then an ERCP done at an outside hospital, then she was admitted to [facility] on multiple occasions for continued abdominal pain and peripancreatic and retroperitoneal abscesses, which were drained in the past, and she went home. She was supposed to be followed with the primary surgical team in [place]. Then, meantime, she developed pain and admitted to the hospital through Emergency Room, which revealed in the central pyloric area another abscess formation about 6-7 cm size, which was drained percutaneously and from that point, she is doing very well. Pain is controlled. PHYSICAL EXAMINATION: VITAL SIGNS: Afebrile. ABDOMINAL EXAMINATION: Soft, nontender. Drain is in place and draining seropurulent fluid. IMPRESSION OVERALL: Keep the drain in place at least for 2 weeks, and she can be discharged because she is doing very well clinically. PLAN: Clinically, she is doing very well, so we will discharge her home with a drain in place and then with pain medications, Percocet, and with an antibiotic, Levaquin, to take 10 days. She must follow up with the primary surgical team including [facility] [place]. She was given strong instructions about that. Also, in case that she needs it, she is going to be followed in [facility]. At the time of discharge, the patient is doing very well. DICTATING PHYSICIAN: MISHEL FOLEY M.D. [id number] PHY#: [id number] ID: [id number] JOB#: [id number] ACCT: [id number] cc:Beto TIPTON M.D. >
== END 2017-02-06 15:25 | disposition home or self-care (01) ==
LOC: ER 22:29 → EH 02-04 02:50 → INTOOBSV 02-04 02:50 → 4N 02-04 12:43
PROVIDERS: ADMIT Surgery; ATTEND Surgery
PROC: 0D9 Gastrointestinal System, Drainage (ICD-10-PCS; principal; 2017-02-04)
PROC: 3E0234Z Introduction of Serum, Toxoid and Vaccine into Muscle, Percutaneous Approach (ICD-10-PCS; 2017-02-06)
DX: K65.1 Peritoneal abscess (principal); Z96.0 Presence of urogenital implants; Z90.49 Acquired absence of other specified parts of digestive tract; Z79.899 Other long term (current) drug therapy; Z23 Encounter for immunization
CPT/HCPCS: 99285; 96361; 96374; 96375; 36415 ×3; 87205; 87070; 83690 ×2; 84703; 85025 ×2; 85610; 85730; 87075; 80076; 80048; 80053; 81001; 75989; 74176; 74177; 90686; 49406; G0378 ×3; C1729; C1894; C1769; J3010; J2270; J1170 ×3; J2405; J7030 ×3; J2543; J2250

== ENCOUNTER 2017-03-30 02:55 | Emergency (ER) | payer OTHER ==
--- NOTE | 2017-03-30 05:00 | ER Document Report ---
Addendum entered and electronically signed by LEIGHTON RENTERIA NP 03/30/17 12:31 : Discharge - Discharge Clinical Impression: RLQ abdominal pain, peritoneal tube drainage Urinary tract infection Qualifiers: Urinary tract infection type: site unspecified Hematuria presence: without hematuria Qualified Code(s): N39.0 - Urinary tract infection, site not specified Condition: Good Disposition: HOME, SELF-CARE Instructions: Abdominal Pain ([facility]), Cephalexin ([facility]), Rocephin ([facility]), Urinary Tract Infection ([facility]) Additional Instructions: urine culture is pending see dr. pereira tomorrow, tell him that dr. martinez recommends tube removal when you do not have any drainage anymore (in about a week) keflex four times per day to er if any fever, vomiting or any concerns Prescriptions: Cephalexin Monohydrate [Keflex 500 mg Capsule] 500 mg PO QID #28 capsule Referrals: CECELIA PEREIRA MD [NO LOCAL MD] - Follow up tomorrow Original Note: ED General - General TRAVEL OUTSIDE OF THE [place] IN LAST 30 DAYS: No <HANNAH JOHNSON - Last Filed: 03/30/17 07:16> <LEIGHTON RENTERIA - Last Filed: 03/30/17 12:20> <SRIDHAR HOLT - Last Filed: 04/02/17 17:00> - General Chief Complaint: Abdominal Pain Stated Complaint: ABDOMINAL PAIN Time Seen by Provider: 03/30/17 04:46 - HPI Notes: Patient is a 41-year-old female with a history of a cholecystectomy in July 2016 , which led to a common bile duct stone dislodged by ERCP, which led to pancreatitis. Patient then developed a pancreatic abscess and then was hospitalized with a right lower quadrant intra-abdominal abscess and had a percutaneous drain placed. Patient also has a history of ureteral stent the right side and an abscess that needed a drain on the right lower quadrant at the end of January. Patient states that she has been with pain management, but ran out of pain medication last Thursday and has not been able to get a refill she has not been able to get a hold the providers. Patient believes that this pain has been constant, but was mass because of the pain medication and since she has not had any the pain has been very prevalent over this last week. Patient states that she has nausea without vomiting. She is urinating normally and having normal bowel movements otherwise. She has not had any vaginal odor/bleeding/discharge. Patient states that the pain is to the right lower quadrant where her drain is currently. She has not noticed any skin color changes. Patient states that she was supposed to have a referral to a pancreatic specialist, but is still waiting on that from her PCM. Denies any headache, fever, neck pain, URI, sore throat, chest pain, palpitations, syncope , cough, shortness of breath, wheeze, dyspnea, vomiting/diarrhea, melena, hematochezia, urinary retention, dysuria, hematuria, back pain, loss of control of bowel or bladder, numbness/tingling, saddle anesthesia, muscle paralysis/ weakness, or rash. (HANNAH JOHNSON) - Related Data Allergies/Adverse Reactions: typhoid vaccine [Typhoid Vaccine] Allergy (Intermediate, Verified 03/30/17 03:01 ) Facial edema and rash Past Medical History - Social History Smoking Status: Unknown if Ever Smoked Family History: Reviewed & Not Pertinent - Past Medical History Cardiac Medical History: Denies: Hx Coronary Artery Disease, Hx Heart Attack, Hx Hypertension - RUNS LOW Pulmonary Medical History: Denies: Hx Asthma, Hx Bronchitis, Hx COPD, Hx Pneumonia Neurological Medical History: Denies: Hx Cerebrovascular Accident, Hx Seizures Endocrine Medical History: Denies: Hx Diabetes Mellitus Type 1, Hx Diabetes Mellitus Type 2 Renal/ Medical History: Denies: Hx End Stage Renal Disease, Hx Peritoneal Dialysis Musculoskeltal Medical History: Denies Hx Arthritis Psychiatric Medical History: Reports: Hx Depression Past Surgical History: Reports: Hx Cholecystectomy, Hx Genitourinary Surgery - right kidneys stent, Other - Laparoscopic cholecystectomy in July of this year at the [facility]. Denies: Hx Hysterectomy - Immunizations Hx Diphtheria, Pertussis, Tetanus Vaccination: Yes <HANNAH JOHNSON - Last Filed: 03/30/17 07:16> Review of Systems <HANNAH JOHNSON - Last Filed: 03/30/17 07:16> <LEIGHTON RENTERIA - Last Filed: 03/30/17 12:20> <SRIDHAR HOLT - Last Filed: 04/02/17 17:00> - Review of Systems Notes: REVIEW OF SYSTEMS: CONSTITUTIONAL : Denies fever, chills, or sweats. Denies recent illness. EENT: Denies eye, ear, throat, or mouth pain or symptoms. Denies nasal or sinus congestion or discharge. Denies throat, tongue, or mouth swelling or difficulty swallowing. CARDIOVASCULAR: Denies chest pain. Denies palpitations or racing or irregular heart beat. Denies ankle edema. RESPIRATORY: Denies cough, cold, or chest congestion. Denies shortness of breath, difficulty breathing, or wheezing. GASTROINTESTINAL: see hpi GENITOURINARY: Denies difficulty urinating, painful urination, burning, frequency, blood in urine, or discharge. FEMALE GENITOURINARY: Denies vaginal bleeding, heavy or abnormal periods, irregular periods. Denies vaginal discharge or odor. MUSCULOSKELETAL: Denies back or neck pain or stiffness. Denies joint pain or swelling. SKIN: Denies rash, lesions or sores. NEUROLOGICAL: Denies confusion or altered mental status. Denies passing out or loss of consciousness. Denies dizziness or lightheadedness. Denies headache. Denies weakness or paralysis or loss of use of either side. Denies problems with gait or speech. Denies sensory loss, numbness, or tingling. Denies seizures. ALL OTHER SYSTEMS REVIEWED AND NEGATIVE. Dictation was performed using [employer] voice recognition software (HANNAH JOHNSON) Physical Exam <HANNAH JOHNSON - Last Filed: 03/30/17 07:16> <LEIGHTON RENTERIA - Last Filed: 03/30/17 12:20> <SRIDHAR HOLT - Last Filed: 04/02/17 17:00> - Vital signs Vitals: Temp Pulse Resp BP Pulse Ox 97.8 F 65 20 104/68 98 03/30/17 03:04 03/30/17 03:04 03/30/17 03:04 03/30/17 03:04 03/30/17 03:04 Notes: PHYSICAL EXAMINATION: GENERAL: Well-appearing, well-nourished and in no acute distress. A&Ox4. Answers questions appropriately. HEAD: Atraumatic, normocephalic. EYES: Pupils equal round and reactive to light, extraocular movements intact, sclera anicteric, conjunctiva are normal. ENT: Nares patent and without discharge. oropharynx clear without exudates. No tonsilar hypertrophy or erythema. Moist mucous membranes. NECK: Normal range of motion, supple without lymphadenopathy LUNGS: Breath sounds clear to auscultation bilaterally and equal. No wheezes rales or rhonchi. HEART: Regular rate and rhythm without murmurs, rubs, gallops. ABDOMEN: Soft, nondistended abdomen. No guarding, no rebound. No masses appreciated. Normal bowel sounds present. No CVA tenderness bilaterally. + tenderness to the RLQ. There is a drain in place and w/o cellulitis. Musculoskeletal: FROM to passive/active. Strength 5+/5. Extremities: No cyanosis, clubbing, or edema b/l. Peripheral pulses 2+. Capillary refill less than 3 seconds. NEUROLOGICAL: Cranial nerves grossly intact. Normal speech, normal gait. Normal sensory, motor exams PSYCH: Normal mood, normal affect. SKIN: Warm, Dry, normal turgor, no rashes or lesions noted. (HANNAH JOHNSON) Course - Laboratory Result Diagrams: 03/30/17 05:55 03/30/17 05:55 <HANNAH JOHNSON - Last Filed: 03/30/17 07:16> - Laboratory Result Diagrams: 03/30/17 05:55 03/30/17 05:55 <LEIGHTON RENTERIA - Last Filed: 03/30/17 12:20> - Laboratory Result Diagrams: 03/30/17 05:55 03/30/17 05:55 <SRIDHAR HOLT - Last Filed: 04/02/17 17:00> - Re-evaluation Re-evalutation: 03/30/17 07:10 Patient is an afebrile, well-hydrated, 41-year-old female who presents to the ED with right lower quadrant abdominal pain. Vitals are currently stable. PE revealed palpable tenderness the right lower quadrant. Pt does have a drain in place secondary to her peritoneal abscess about 1.5mos ago. Patient was given Zofran, fluids, and morphine. Patient states that the Zofran did help her nausea, and the morphine helped minimally. I will give her another dose of morphine at 5mg at 0700. We did thoroughly review patient's labs. Her CBC, CMP. See UA results. UC is pending. Patient does not have a white count, but she did not have a white count when the abscess was found either. Reviewed with Dr. Bustillos who is in agreement with CT scan oral/iv for further evaluation and management. Care transferred to Mario Renteria NP. (HANNAH JOHNSON) 03/30/17 07:46 Patient is drinking contrast. She will have her CT at 915. I reviewed her discharge summary from 02/06/2017 and her percutaneous drain was only supposed to stay in place for 2 weeks. She did not follow up with the [place] [facility] as directed. She does have an appointment with a surgeon at [facility] tomorrow. 03/30/17 10:24 CT: Decrease interval fluid collection in the right lower quadrant the appendix is not seen I called Dr. Martinez to come see the patient to determine whether the drain should come out. He will come see the patient in room 14. 03/30/17 10:41 I discussed with patient the [facility] pain management and she was taking 30 mg of oxycodone twice a day with Dilaudid 2 mg for breakthrough. They ended the oxycodone was at the end of February and they gave her Nucenta 100mg which was not working, so took that for 14 days and the dilaudid 2mg and now completely out. States she went through withdrawal. 03/30/17 11:31 Dr. Martinez withdrew sick yellow-brown catheter and we sent out for wound culture he states the catheter cannot come out he went to go get a portable suction for her. She is again stating that she needs pain medication she wants to continue opiates. I did explain to her that I would not be providing a prescription for opiates. That I would treat her pain here. 03/30/17 11:33 03/30/17 12:04 dr martinez says she does not need any antibiotics, but I told him I am treating with keflex outpt pending the urine cx. He is OK with that. He also wants her to have dr pereira at [facility] remove the drain when the drainage stops. peritoneal wound cx done today and pending (LEIGHTON RENTERIA) - Vital Signs Vital signs: Temp Pulse Resp BP Pulse Ox 97.8 F 63 17 95/62 L 96 03/30/17 03:04 03/30/17 13:07 03/30/17 13:07 03/30/17 13:07 03/30/17 13:07 - Laboratory Laboratory results interpreted by me: 03/30/17 03/30/17 03/30/17 05:00 05:55 05:55 Hgb 11.6 L Hct 34.8 L RDW 16.1 H ALT 81 H Ur Leukocyte Esterase SMALL H Discharge <ELIZABETHHANNAH - Last Filed: 03/30/17 07:16> <LEIGHTON RENTERIA - Last Filed: 03/30/17 12:20> <SRIDHAR HOLT - Last Filed: 04/02/17 17:00> - Discharge Clinical Impression: RLQ abdominal pain, peritoneal tube drainage Urinary tract infection Qualifiers: Urinary tract infection type: site unspecified Hematuria presence: without hematuria Qualified Code(s): N39.0 - Urinary tract infection, site not specified Condition: Good Disposition: HOME, SELF-CARE Instructions: Abdominal Pain ([facility]), Cephalexin ([facility]), Rocephin ([facility]), Urinary Tract Infection ([facility]) Additional Instructions: urine culture is pending see dr. pereira tomorrow, tell him that dr. martinez recommends tube removal when you do not have any drainage anymore (in about a week) keflex four times per day to er if any fever, vomiting or any concerns Prescriptions: Cephalexin Monohydrate [Keflex 500 mg Capsule] 500 mg PO QID #28 capsule Ciprofloxacin HCl [Cipro 500 mg Tablet] 500 mg PO BID #14 tablet Referrals: CECELIA PEREIRA MD [NO LOCAL MD] - Follow up tomorrow
[2017-03-30] MEDS ORDERED: ONDANSETRON HCL INJ/PF 4 MG/2 ML SDV IV ONE (05:02)
[2017-03-30] MEDS ORDERED: MORPHINE SULFATE 10 MG/ML INJ IV ONE ×3 (05:02→11:31)
[2017-03-30 05:28] LABS: APPEARANCE,URINE CLEAR; BILIRUBIN,URINE NEGATIVE (NEGATIVE); COLOR,URINE YELLOW; GLUCOSE, URINE NEGATIVE (NEGATIVE); KETONES,URINE NEGATIVE (NEGATIVE); LEUKOCYTE ESTERASE,URINE SMALL (NEGATIVE); NITRITE,URINE NEGATIVE (NEGATIVE); PROTEIN,URINE NEGATIVE (NEGATIVE); URINE SPECIFIC GRAVITY 1.014; UROBILINOGEN,URINE NEGATIVE mg/dL (<2.0)
[2017-03-30 06:02] LABS: ABSOLUTE BASOPHILS # (AUTO) 0.1 10^3/uL (0.0-0.2); ABSOLUTE EOSINOPHILS # (AUTO) 0.2 10^3/uL (0.0-0.6); ABSOLUTE LYMPHOCYTES (AUTO) 1.6 10^3/uL (0.5-4.7); ABSOLUTE MONOCYTES (AUTO) 0.5 10^3/uL (0.1-1.4); ABSOLUTE NEUT (AUTO) 4.9 10^3/uL (1.7-8.2); BASOPHILS % (AUTO) 0.9 % (0-2); EOSINOPHILS % (AUTO) 3.2 % (0-6); HEMATOCRIT 34.8 % (36.0-47.0); HEMOGLOBIN 11.6 g/dL (12.0-15.5); LYMPHOCYTES % (AUTO) 22.3 % (13-45); MEAN CORPUSCULAR HEMOGLOBIN 28.6 pg (27.0-33.4); MEAN CORPUSCULAR HGB CONC 33.3 g/dL (32.0-36.0); MEAN CORPUSCULAR VOLUME 86 fl (80-97); MONOCYTES % (AUTO) 6.3 % (3-13); PLATELET COUNT 265 10^3/uL (150-450); RED BLOOD COUNT 4.05 10^6/uL (3.72-5.28); RED CELL DISTRIBUTION WIDTH 16.1 % (11.5-14.0); SEGMENTED NEUTROPHILS % (AUTO) 67.3 % (42-78); TOTAL CELLS COUNTED % (AUTO) 100 %; WHITE BLOOD COUNT 7.4 10^3/uL (4.0-10.5)
[2017-03-30 06:30] LABS: ALANINE AMINOTRANSFERASE 81 U/L (9-52); ALBUMIN 4.5 g/dL (3.5-5.0); ALKALINE PHOSPHATASE 90 U/L (38-126); ANION GAP 10 (5-19); ASPARTATE AMINO TRANSFERASE 30 U/L (14-36); BILIRUBIN,DIRECT 0.2 mg/dL (0.0-0.4); BILIRUBIN,TOTAL 0.2 mg/dL (0.2-1.3); BLOOD UREA NITROGEN 16 mg/dL (7-20); CALCIUM 9.7 mg/dL (8.4-10.2); CARBON DIOXIDE 28 mmol/L (22-30); CHLORIDE 103 mmol/L (98-107); GLUCOSE 96 mg/dL (75-110); LIPASE 49.1 U/L (23-300); POTASSIUM 4.4 mmol/L (3.6-5.0); SODIUM 141.3 mmol/L (137-145); TOTAL PROTEIN 7.3 g/dL (6.3-8.2)
[2017-03-30] MEDS ORDERED: NORMAL SALINE 1000 ML 1,000 ML IV ONE (06:48)
[2017-03-30] MEDS ORDERED: HYDROMORPHONE HCL INJ/PF 2 MG/ML AMPULE IV ONE (08:16)
[2017-03-30] MEDS ORDERED: CEFTRIAXONE 1 GM/D5W RTU 1 GM/50 ML RTUPB IV ONE (09:30)
--- NOTE | 2017-03-30 10:03 | RADIOLOGY REPORT (SQ) ---
EXAM DESCRIPTION: CT ABD/PELVIS WITH IV ORAL COMPLETED DATE/TIME: 03/30/2017 9:42 am REASON FOR STUDY: RLQ pain, recent peritoneal abscess.drain in place COMPARISON: 02/04/2017 TECHNIQUE: CT scan of the abdomen and pelvis performed with intravenous and oral contrast using xin siobhan scanning technique with dynamic intravenous contrast injection. Images reviewed with lung, soft t issue, and bone windows. Reconstructed coronal and sagittal MPR images reviewed. Delayed images for e valuation of the urinary system also acquired. All images stored on PACS. All CT scanners at this facility use dose modulation, iterative reconstruction, and/or weight based d osing when appropriate to reduce radiation dose to as low as reasonably achievable (ALARA). [facility]: Dose Right [facility]: CareDose [facility]: Dose Right [facility]: Teradose 4D [facility]: Mezzobit CONTRAST TYPE AND DOSE: contrast/concentration: Isovue 370.00 mg/ml; Total Contrast Delivered: 91.0 ml; Total Saline Delivered: 70.0 ml RENAL FUNCTION: BUN 16 creatinine 1.0 RADIATION DOSE: CT Rad equipment meets quality standard of care and radiation dose reduction techniq ues were employed. CTDIvol: 12.8 - 16.3 mGy. DLP: 1643 mGy-cm. . LIMITATIONS: None. FINDINGS: LOWER CHEST: No significant findings. No nodules or infiltrates. LIVER: Normal size. No masses. No dilated ducts. SPLEEN: Normal size. No focal lesions. PANCREAS: No masses. No significant calcifications. No adjacent inflammation or peripancreatic fluid collections. Pancreatic duct not dilated. GALLBLADDER: Surgically absent. ADRENAL GLANDS: No significant masses or asymmetry. RIGHT KIDNEY AND URETER: No solid masses. No significant calcifications. Unchanged position of ri ght ureteral stent. LEFT KIDNEY AND URETER: No solid masses. No significant calcifications. No hydronephrosis or hydr oureter. AORTA AND VESSELS: No aneurysm. No dissection. Renal arteries, SMA, celiac without stenosis. RETROPERITONEUM: No retroperitoneal adenopathy, hemorrhage or masses. BOWEL AND PERITONEAL CAVITY: No obstruction. No visualized masses. No free fluid. No inflammatory ch anges or thickening of bowel wall. APPENDIX: Not visualized. PELVIS: Interval decrease in fluid collection in the right lower quadrant none measuring about 3 cm i n AP by transverse diameter status post interval percutaneous drain placement. ABDOMINAL WALL: See above. BONES: No acute findings. OTHER: No other significant finding. IMPRESSION: Interval decrease in size of right lower quadrant fluid collection status post percutane ous drain placement. TECHNICAL DOCUMENTATION: JOB ID: [id number] Quality ID # [id number]: Final reports with documentation of one or more dose reduction techniques (e.g., Au tomated exposure control, adjustment of the mA and/or kV according to patient size, use of iterative reconstruction technique) 2010 [employer]- All Rights Reserved
[2017-03-30] MEDS ORDERED: CEFTRIAXONE INJ 1000 MG VIAL ONE (11:12)
--- NOTE | 2017-03-30 12:38 | PDOC CONSULTATION ---
Consultation Consult Date: 03/30/17 Consult reason:: abdominal pains History of Present Illness Admission Date/PCP: GIOVANNI ROBERTSON MD History of Present Illness: AZAM BURNHAM is a 41 year old female with history of gallstne pancreatitis with pseudocyst. Had ERCP, lap cholecystectomy about 6 months ago. Initially seen in 2016 where an abscess/pseudocyst was drained. This drain was removed sat the [facility] br Dr Liu. Pt came back in Feb 04 where another drain was placed to drain a 6 cm abscess. Pt instructed to have it removed in 2 weeks at the [facility]. Because of the holidays patient only scheduled to see Surgeon at the [facility] Dr Liu tomorrow. Today came back to ED and a Ct scan of the abdomen showed a 3 cm abscess. The drain apparently was not working. I aspirated mabout 4 ccs of dark brown pus. This will be sent for C/S. The drain was irrigated until return flow almost clear. A new set of drainage suction was placed. There was a leak in the connector and a new connector was placed. Showed the patient how to reactivate the suction. She is going to see Dr Liu. The drain can be removed after a week if drainage stops. I spoke to ER OPHTHALMIC TECHNICIAN APPRENTICE. Because urinalysis suggestive of infection she will place her on Keflex. Will inform her of culture results in 24-48 hrs. Past Medical History Cardiac Medical History: Denies: Coronary Artery Disease, Myocardial Infarction, Hypertension - RUNS LOW Pulmonary Medical History: Denies: Asthma, Bronchitis, Chronic Obstructive Pulmonary Disease (COPD), Pneumonia Neurological Medical History: Denies: Seizures Endocrine Medical History: Denies: Diabetes Mellitus Type 1, Diabetes Mellitus Type 2 Renal/ Medical History: Denies: End Stage Renal Disease Musculoskeltal Medical History: Denies: Arthritis Psychiatric Medical History: Reports: Depression Hematology: Denies: Anemia Past Surgical History Past Surgical History: Reports: Cholecystectomy, Other - Laparoscopic cholecystectomy in July of this year at the [facility] Denies: Hysterectomy Social History Smoking Status: Unknown if Ever Smoked Frequency of Alcohol Use: Occasional Hx Recreational Drug Use: No Drugs: None Hx Prescription Drug Abuse: No Family History Family History: Reviewed & Not Pertinent Parental Family History Reviewed: Yes Children Family History Reviewed: No Sibling(s) Family History Reviewed.: No Medication/Allergy Home Medications: Acetaminophen [Tylenol 325 mg Tablet] 975 mg PO BID 12/21/16 Bupropion HCl [Wellbutrin Xl 300mg 24hr Tablet] 300 mg PO DAILY 12/21/16 Fluoxetine HCl [Prozac] 80 mg PO DAILY 12/21/16 Gabapentin [Neurontin 300 mg Capsule] 300 mg PO DAILY 12/21/16 Gabapentin [Neurontin 300 mg Capsule] 600 mg PO QHS 12/21/16 Oxycodone HCl [Oxycontin] 30 mg PO Q12 12/21/16 Sucralfate [Carafate 1 gm Tablet] 1 gm PO BID 12/21/16 Tamsulosin HCl [Flomax 0.4 mg Cap.sr] 0.4 mg PO DAILY 12/21/16 Cephalexin Monohydrate [Keflex 500 mg Capsule] 500 mg PO QID #28 capsule Allergies/Adverse Reactions: typhoid vaccine [Typhoid Vaccine] Allergy (Intermediate, Verified 03/30/17 03:01 ) Facial edema and rash Review of Systems All systems: reviewed and no additional remarkable complaints except as stated - mild pains around drain site on the RLQ Physical Exam Vital Signs: Temp Pulse Resp BP Pulse Ox 97.8 F 65 20 104/68 98 03/30/17 03:04 03/30/17 03:04 03/30/17 03:04 03/30/17 03:04 03/30/17 03:04 General appearance: PRESENT: no acute distress Head exam: PRESENT: atraumatic Eye exam: PRESENT: conjunctiva pink Mouth exam: PRESENT: moist, tongue midline Neck exam: PRESENT: full ROM Respiratory exam: PRESENT: clear to auscultation ryan Cardiovascular exam: PRESENT: RRR Pulses: PRESENT: normal radial pulses Vascular exam: PRESENT: normal capillary refill GI/Abdominal exam: PRESENT: soft, tenderness - mild tenderness around drainage catheter site Rectal exam: PRESENT: deferred Extremities exam: PRESENT: full ROM Musculoskeletal exam: PRESENT: ambulatory Neurological exam: PRESENT: alert, oriented to person, oriented to place, oriented to time, oriented to situation Psychiatric exam: PRESENT: appropriate affect Skin exam: PRESENT: normal color, warm Results Laboratory Results: 03/30/17 05:55 03/30/17 05:55 03/30/17 03/30/17 03/30/17 05:00 05:55 05:55 WBC 7.4 RBC 4.05 Hgb 11.6 L Hct 34.8 L MCV 86 MCH 28.6 MCHC 33.3 RDW 16.1 H Plt Count 265 Seg Neutrophils % 67.3 Lymphocytes % 22.3 Monocytes % 6.3 Eosinophils % 3.2 Basophils % 0.9 Absolute Neutrophils 4.9 Absolute Lymphocytes 1.6 Absolute Monocytes 0.5 Absolute Eosinophils 0.2 Absolute Basophils 0.1 Sodium 141.3 Potassium 4.4 Chloride 103 Carbon Dioxide 28 Anion Gap 10 BUN 16 Creatinine 1.00 Est GFR ( Amer) > 60 Est GFR (Non-Af Amer) > 60 Glucose 96 Calcium 9.7 Total Bilirubin 0.2 AST 30 ALT 81 H Alkaline Phosphatase 90 Total Protein 7.3 Albumin 4.5 Lipase 49.1 Urine Color YELLOW Urine Appearance CLEAR Urine pH 7.0 Ur Specific Stout 1.014 Urine Protein NEGATIVE Urine Glucose (UA) NEGATIVE Urine Ketones NEGATIVE Urine Blood NEGATIVE Urine Nitrite NEGATIVE Ur Leukocyte Esterase SMALL H Urine WBC (Auto) 18 Urine RBC (Auto) 3 Impressions: Abdomen/Pelvis CT 03/30/17 00:00 IMPRESSION: Interval decrease in size of right lower quadrant fluid collection status post percutaneous drain placement. Assessment & Plan - Diagnosis (1) Intra-abdominal abscess Is this a current diagnosis for this admission?: Yes (2) Pancreatic pseudocyst Is this a current diagnosis for this admission?: Yes - Time Time Spent: 30 to 50 Minutes - Plan Summary Plan Summary: Reactivated drain to RLQ and irrigated.Drain is to an area of pseudocyst/ abscess site PO Keflex primarily for UTI C/S of aspirated pus from RLQ drain To see Dr Liu at the [facility] tomorrow. Pt on chronic pain mx
[2017-03-30 13:09] VITALS: BP 95/62
== END 2017-03-30 13:07 | disposition home or self-care (01) ==
LOC: ER 02:55
DX: K65.1 Peritoneal abscess (principal); N39.0 Urinary tract infection, site not specified; R10.31 Right lower quadrant pain; Z88.7 Allergy status to serum and vaccine
CPT/HCPCS: 96376; 99285; 96361; 96375; 96365; 36415; 87086; 87070; 87205; 83690; 85025; 81025; 87075; 87077; 80053; 81001; 87186; 74177; J2270; J1170; J0696; J2405; J7030

== ENCOUNTER 2017-07-14 21:08 | Emergency (ER) | payer OTHER ==
[2017-07-14] MEDS ORDERED: HYDROMORPHONE HCL INJ/PF 2 MG/ML AMPULE IV ONE (21:55)
[2017-07-14] MEDS ORDERED: ONDANSETRON HCL INJ/PF 4 MG/2 ML SDV IV ONE (21:59)
[2017-07-14 22:17] LABS: ABSOLUTE EOSINOPHILS # (AUTO) 0.1 10^3/uL (0.0-0.6); ABSOLUTE LYMPHOCYTES (AUTO) 0.4 10^3/uL (0.5-4.7); ABSOLUTE NEUT (AUTO) 4.7 10^3/uL (1.7-8.2); BASOPHILS % (AUTO) 0.3 % (0-2); EOSINOPHILS % (AUTO) 1.6 % (0-6); HEMATOCRIT 29.9 % (36.0-47.0); LYMPHOCYTES % (AUTO) 8.3 % (13-45); MEAN CORPUSCULAR HEMOGLOBIN 28.3 pg (27.0-33.4); MEAN CORPUSCULAR HGB CONC 33.6 g/dL (32.0-36.0); MEAN CORPUSCULAR VOLUME 84 fl (80-97); MONOCYTES % (AUTO) 0.7 % (3-13); PLATELET COUNT 151 10^3/uL (150-450); RED BLOOD COUNT 3.56 10^6/uL (3.72-5.28); RED CELL DISTRIBUTION WIDTH 18.9 % (11.5-14.0); SEGMENTED NEUTROPHILS % (AUTO) 89.1 % (42-78); TOTAL CELLS COUNTED % (AUTO) 100 %; WHITE BLOOD COUNT 5.3 10^3/uL (4.0-10.5)
--- NOTE | 2017-07-14 22:20 | ER Document Report ---
ED General - General Chief Complaint: Abdominal Pain Stated Complaint: ABDOMINAL PAIN Time Seen by Provider: 07/14/17 21:42 Notes: Patient is a 42-year-old female who presents emergency department with a known history of a gallstone pancreatitis with pseudocyst status post ERCP and lap cholecystectomy with complications including abscess and ureteral obstruction with associated insufficiency. Patient has had multiple subcutaneous drains placed. Patient states that she now follows with a surgeon in [place] for this. States that she had the drain removed and has not had much issue but is still taking chronic narcotics. Patient admits to intermittent fevers and chills, nausea as well as right flank and right lower quadrant pain. She describes her pain starting on Thursday as a stabbing pain with associated constant pressure and aching. She denies any decreased urine output. Patient states that she does have a urinary stent in place due to the abscess obstructing the right ureter. Patient's primary care is with Dr. Agrawal at [facility] Surgeon is Dr. Ramos in [place] Urology: [place] with [facility] Per review of the [facility] and our chart, patient takes Hydromorphone 2mg q6h and oxycodone 20mg, levorphanol 2mg. TRAVEL OUTSIDE OF THE [place] IN LAST 30 DAYS: No - Related Data Allergies/Adverse Reactions: typhoid vaccine [Typhoid Vaccine] Allergy (Intermediate, Verified 07/14/17 21:13 ) Facial edema and rash Past Medical History - Social History Smoking Status: Never Smoker Family History: Reviewed & Not Pertinent - Past Medical History Cardiac Medical History: Denies: Hx Coronary Artery Disease, Hx Heart Attack, Hx Hypertension - RUNS LOW Pulmonary Medical History: Denies: Hx Asthma, Hx Bronchitis, Hx COPD, Hx Pneumonia Neurological Medical History: Denies: Hx Cerebrovascular Accident, Hx Seizures Endocrine Medical History: Denies: Hx Diabetes Mellitus Type 1, Hx Diabetes Mellitus Type 2 Renal/ Medical History: Denies: Hx End Stage Renal Disease, Hx Peritoneal Dialysis Musculoskeltal Medical History: Denies Hx Arthritis Psychiatric Medical History: Reports: Hx Depression Past Surgical History: Reports: Hx Cholecystectomy, Hx Genitourinary Surgery - right kidneys stent, Other - Laparoscopic cholecystectomy in July of this year at the [facility]. Denies: Hx Hysterectomy - Immunizations Hx Diphtheria, Pertussis, Tetanus Vaccination: Yes Review of Systems - Review of Systems Constitutional: See HPI Cardiovascular: No symptoms reported Respiratory: No symptoms reported Gastrointestinal: See HPI Genitourinary: See HPI Musculoskeletal: No symptoms reported Neurological/Psychological: No symptoms reported -: Yes All other systems reviewed and negative Physical Exam - Vital signs Vitals: Temp Pulse Resp BP Pulse Ox 99.7 F 116 H 24 H 121/92 H 96 07/14/17 21:19 07/14/17 21:19 07/14/17 21:19 07/14/17 21:19 07/14/17 21:19 - Notes Notes: PHYSICAL EXAM GENERAL: Alert, patient intermittently crying out in pain and asking for medication. HEAD: Normocephalic, atraumatic. EYES: Pupils equal, round, and reactive to light. Extraocular movements intact. ENT: Oral mucosa moist, tongue midline. NECK: Full range of motion. Supple. Trachea midline. LUNGS: Clear to auscultation bilaterally, no wheezes, rales, or rhonchi. No respiratory distress. HEART: Regular rate and rhythm. No murmurs, gallops, or rubs. ABDOMEN: Soft, nondistended, nontender. No guarding, rebound, or rigidity.. Bowel sounds present in all 4 quadrants. EXTREMITIES: Moves all 4 extremities spontaneously. No edema, radial and dorsalis pedis pulses 2/4 bilaterally. No cyanosis. Back: Superficial tenderness over the right flank. NEUROLOGICAL: Alert and oriented x4. Normal speech. PSYCH: Normal affect, normal mood. SKIN: Warm, dry, normal turgor. No rashes or lesions noted. Course - Re-evaluation Re-evalutation: 07/15/17 22:00 Patient is a 42-year-old female who returns with right lower quadrant and right flank pain. Patient febrile with an initial temp of 102. Patient did receive Tylenol. Patient heart rate did respond after fluids. Pain is improved. Given complicated medical history we will send for repeat imaging of the abdomen and pelvis. 07/15/17 03:34 CT the abdomen pelvis does not show any evidence of recurrent peritoneal abscess. Does show evidence of right hydronephrosis with stent in place. Urinalysis with hematuria and leukoesterase. Will discuss with urology at [facility] given stent and associated hydronephrosis 07/15/17 03:45 D/w Dr Davis who states her UA and CT results are consistent with the stent that is in place. Does not require UTI/pyleo treamtent at this time 07/15/17 04:19 Patient's blood work does not show any elevation in lipase. Repeat abdominal exams benign. Patient states that she feels well. Patient serial BPs have been low in the 90s. Patient states that this is her normal blood pressure. She is asymptomatic. Orthostatics negative. Patient states that she feels well enough to go home. Will follow up with her primary care this week. - Vital Signs Vital signs: Temp Pulse Resp BP Pulse Ox 98.5 F 61 16 92/50 L 96 07/15/17 04:38 07/15/17 04:38 07/15/17 04:38 07/15/17 04:28 07/15/17 04:38 - Laboratory Result Diagrams: 07/14/17 22:10 07/14/17 22:10 Laboratory results interpreted by me: 07/14/17 07/14/17 07/15/17 22:10 22:10 01:58 RBC 3.56 L Hgb 10.0 L Hct 29.9 L RDW 18.9 H Seg Neutrophils % 89.1 H Lymphocytes % 8.3 L Monocytes % 0.7 L Absolute Lymphocytes 0.4 L Absolute Monocytes 0.0 L Chloride 108 H Magnesium 1.4 L AST 44 H ALT 103 H Urine Blood MODERATE H Ur Leukocyte Esterase SMALL H - Diagnostic Test Radiology reviewed: Image reviewed, Reports reviewed Discharge - Discharge Clinical Impression: Abdominal pain Qualifiers: Abdominal location: right lower quadrant Qualified Code(s): R10.31 - Right lower quadrant pain Condition: Good Disposition: HOME, SELF-CARE Additional Instructions: ABDOMINAL PAIN: There are many causes of abdominal pain. Pain can mean a serious problem requiring surgery (such as appendicitis). It can also be an innocent problem that goes away on its own (such as a viral infection). Often, time must pass to determine the cause of pain. The physician does not feel that hospitalization is necessary, at present. Things may change within the next 24 hours. Call the doctor or come back for re- examination if any problems occur, such as: (1) Pain that becomes more severe, steady, or becomes concentrated in one specific area. Also, pain that is more severe with movement or coughing. (2) Vomiting that persists or becomes more frequent. (3) Blood in the vomitus, urine, or bowel movements. Blood in the stool may have a tarry or black appearance. (4) Shaking chills or fever greater than 100 degrees F. (5) The abdomen becomes more distended or swollen. (6) Bowel movements cease. (7) Failure to improve as expected. NORMAL EXAM AND WORKUP: At this time, your examination and workup show no significant abnormality. No significant abnormal physical findings are noted. All laboratory, EKG, and imaging (x-ray, CT scans, ultrasound) studies that were ordered show no significant abnormality. Although your examination and all studies that were ordered showed no significant abnormal finding, there are no examinations and no studies that are 100% accurate. There is always the possibility that some abnormality could exist and not be detected with physical examination or within the limits and capabilities of laboratory and other studies. You should return or follow up as you were instructed on your visit today for further evaluation if your symptoms do not resolve. FOLLOW-UP CARE: If you have been referred to a physician for follow-up care, call the physician s office for an appointment as you were instructed or within the next two days. If you experience worsening or a significant change in your symptoms, notify the physician immediately or return to the Emergency Department at any time for re-evaluation.
[2017-07-14] MEDS ORDERED: ACETAMINOPHEN 325 MG TABLET PO ONE (22:36)
[2017-07-14 22:39] LABS: ALANINE AMINOTRANSFERASE 103 U/L (9-52); ALBUMIN 3.9 g/dL (3.5-5.0); ALKALINE PHOSPHATASE 93 U/L (38-126); ANION GAP 10 (5-19); ASPARTATE AMINO TRANSFERASE 44 U/L (14-36); BILIRUBIN,DIRECT 0.4 mg/dL (0.0-0.4); BLOOD UREA NITROGEN 20 mg/dL (7-20); CALCIUM 8.9 mg/dL (8.4-10.2); CARBON DIOXIDE 23 mmol/L (22-30); CHLORIDE 108 mmol/L (98-107); GLUCOSE 100 mg/dL (75-110); POTASSIUM 3.9 mmol/L (3.6-5.0); SODIUM 140.9 mmol/L (137-145); TOTAL PROTEIN 6.4 g/dL (6.3-8.2)
[2017-07-14] MEDS ORDERED: METOCLOPRAMIDE HCL INJ/PF 10 MG/2 ML SDV IV ONE (23:02)
--- NOTE | 2017-07-14 23:44 | RADIOLOGY REPORT (SQ) ---
EXAM DESCRIPTION: ACUTE ABDOMEN SERIES COMPLETED DATE/TIME: 07/14/2017 11:22 pm REASON FOR STUDY: abdominal pain, worse RLQ COMPARISON: None. NUMBER OF VIEWS: Three views. TECHNIQUE: Frontal chest, supine abdomen and upright/decubitus abdomen radiographic images acquired. LIMITATIONS: None. FINDINGS: CHEST: Lungs clear of infiltrates. FREE AIR: None. No abnormal gas collections. BOWEL GAS PATTERN: Nonobstructive pattern. No dilated loops or air fluid levels. CALCIFICATIONS: No suspicious calcifications. HARDWARE: Right nephroureteral stent. SOFT TISSUES: No gross mass or suggestion of organomegaly. BONES: No acute fracture. No worrisome bone lesions. OTHER: No other significant finding. IMPRESSION: NO RADIOGRAPHIC EVIDENCE FOR ACUTE ABDOMINAL DISEASE. TECHNICAL DOCUMENTATION: JOB ID: [id number] [place]-72 2010 [employer]- All Rights Reserved Reading location - IP/workstation name: [email or web address]
[2017-07-15] MEDS ORDERED: METHYLPREDNISOLONE INJ 125 MG/2 ML SDV IV ONE (00:17)
[2017-07-15] MEDS ORDERED: DIPHENHYDRAMINE HCL 50 MG/ML VIAL IV ONE (00:17)
[2017-07-15] MEDS ORDERED: FAMOTIDINE INJ/PF 20 MG/2 ML SDV IV ONE (00:17)
[2017-07-15] MEDS ORDERED: RINGERS SOLUTION,LACTATED 1,000 ML IV ONE (01:24)
[2017-07-15] MEDS ORDERED: HYDROMORPHONE HCL INJ/PF 2 MG/ML AMPULE IV ONE (02:05)
[2017-07-15 02:35] LABS: APPEARANCE,URINE CLEAR; BILIRUBIN,URINE NEGATIVE (NEGATIVE); COLOR,URINE YELLOW; GLUCOSE, URINE NEGATIVE (NEGATIVE); KETONES,URINE NEGATIVE (NEGATIVE); LEUKOCYTE ESTERASE,URINE SMALL (NEGATIVE); NITRITE,URINE NEGATIVE (NEGATIVE); PROTEIN,URINE NEGATIVE (NEGATIVE); URINE SPECIFIC GRAVITY 1.008; UROBILINOGEN,URINE NEGATIVE mg/dL (<2.0)
--- NOTE | 2017-07-15 03:14 | RADIOLOGY REPORT (SQ) ---
EXAM DESCRIPTION: CT ABDOMEN AND PELVIS WITH CONTRAST CLINICAL HISTORY: RLQ and flank pain. HCG NEGATIVE.h/o abscess COMPARISON: 03/30/2017 TECHNIQUE: CT of the abdomen and pelvis performed following IV administration of 90 mL of Isovue-370. Oral contrast administered. DLP: 1643.94 mGycm FINDINGS: Lung Bases: Bilateral dependent atelectasis. Bones: No destructive bone lesions identified. Degenerative spondylosis of the spine most severe at L5/S1. Abdomen: Liver: The liver has normal size and density. No intrahepatic mass or biliary dilatation. Gallbladder: Prior cholecystectomy. Spleen, Pancreas, and Adrenal Glands: The spleen, pancreas, and adrenal glands are unremarkable. Kidneys: Right double-J ureteral stent with mild right hydronephrosis. No left-sided hydronephrosis or solid mass. Vasculature: The aorta and IVC have normal caliber and position. The portal vein is patent. The proximal visceral and renal arteries are patent. Stomach: The stomach and duodenum have normal course. Other: No free intraperitoneal air. Minimal residual inflammatory change in the right lower quadrant at site of prior drain placement. No well-circumscribed fluid collection identified. Pelvis: Bladder: Urinary bladder is unremarkable. Bowel: No dilated loops of large or small bowel. Appendix: No evidence of acute appendicitis. Pelvis: Uterus is not enlarged. IMPRESSION: 1. Mild right hydronephrosis with right double-J ureteral stent in place. Correlation for stent function recommended. This exam was performed according to our departmental dose-optimization program, which includes automated exposure control, adjustment of the mA and/or kV according to patient size and/or use of iterative reconstruction technique.
[2017-07-15] MEDS ORDERED: CEFTRIAXONE 1 GM/D5W RTU 50 ML IV ONE (03:33)
[2017-07-15 04:31] VITALS: BP 92/50
== END 2017-07-15 04:45 | disposition home or self-care (01) ==
LOC: ER 21:08
DX: T81.4XXA Infection following a procedure, initial encounter (principal); Y83.6 Removal of other organ (partial) (total) as the cause of abnormal reaction of the patient, or of later complication, without mention of misadventure at the time of the procedure; Z79.891 Long term (current) use of opiate analgesic; R50.9 Fever, unspecified; Z90.49 Acquired absence of other specified parts of digestive tract; R11.0 Nausea; R10.9 Unspecified abdominal pain; R10.31 Right lower quadrant pain; N13.1 Hydronephrosis with ureteral stricture, not elsewhere classified; Z96.0 Presence of urogenital implants; Z88.7 Allergy status to serum and vaccine
CPT/HCPCS: 96376; 99284; 96361; 96374; 96375; 36415; 83690; 83735; 84703; 85025; 80053; 81001; 74022; 74177; J1200; J2930; J2765; J1170 ×2; J2405; J7120; S0028

== ENCOUNTER 2017-07-15 18:32 | Emergency (ER) | payer OTHER ==
[2017-07-15] MEDS ORDERED: HYDROMORPHONE HCL INJ/PF 2 MG/ML AMPULE IV ONE (19:57)
[2017-07-15] MEDS ORDERED: ONDANSETRON HCL INJ/PF 4 MG/2 ML SDV IV ONE (19:57)
--- NOTE | 2017-07-15 20:14 | ER Document Report ---
ED Medical Screen (RME) - General Chief Complaint: Abdominal Pain Stated Complaint: ABDOMINAL PAIN Time Seen by Provider: 07/15/17 19:53 Mode of Arrival: Ambulatory Information source: Patient TRAVEL OUTSIDE OF THE [place] IN LAST 30 DAYS: No - HPI Onset: Other - 2 DAYS Onset/Duration: Gradual Context: PATIENT IS KNOWN TO HAVE CHRONIC PAIN, SEEN & MANAGED BY PROVIDER @ [facility]. Quality of pain: Cramping, Sharp Severity: Moderate Associated Symptoms: Nausea Exacerbated by: Denies Relieved by: Denies Similar symptoms previously: Yes Recently seen / treated by doctor: Yes - [facility] E.D., LAST PM, EXTENSIVE W/U DONE. - Related Data Allergies/Adverse Reactions: typhoid vaccine [Typhoid Vaccine] Allergy (Intermediate, Verified 07/14/17 21:13 ) Facial edema and rash Past Medical History - General Information source: Patient, [facility] Records - Social History Frequency of alcohol use: None - Past Medical History Cardiac Medical History: Denies: Hx Coronary Artery Disease, Hx Heart Attack, Hx Hypertension - RUNS LOW Pulmonary Medical History: Denies: Hx Asthma, Hx Bronchitis, Hx COPD, Hx Pneumonia Neurological Medical History: Denies: Hx Cerebrovascular Accident, Hx Seizures Endocrine Medical History: Denies: Hx Diabetes Mellitus Type 1, Hx Diabetes Mellitus Type 2 Renal/ Medical History: Reports: Other - PARTIAL URETERAL OBSTRUCTION, HAS STENT. Denies: Hx End Stage Renal Disease, Hx Peritoneal Dialysis GI Medical History: Reports: Hx Pancreatitis, Other - PANCREATIC CYST, DRAINED Musculoskeltal Medical History: Denies Hx Arthritis Psychiatric Medical History: Reports: Hx Depression Past Surgical History: Reports: Hx Cholecystectomy, Hx Genitourinary Surgery - right kidneys stent, Other - Laparoscopic cholecystectomy in July of this year at the . Denies: Hx Hysterectomy - Immunizations Hx Diphtheria, Pertussis, Tetanus Vaccination: Yes History of Influenza Vaccine for 12/2016 - 05/2017 Season: No Review of Systems - Review of Systems Constitutional: No symptoms reported EENT: No symptoms reported Cardiovascular: No symptoms reported Respiratory: No symptoms reported Gastrointestinal: See HPI Genitourinary: See HPI Musculoskeletal: No symptoms reported Skin: No symptoms reported Neurological/Psychological: No symptoms reported Physical Exam - Vital signs Vitals: Temp Pulse Resp Pulse Ox 98.4 F 95 20 95 07/15/17 18:36 07/15/17 18:36 07/15/17 18:36 07/15/17 18:36 Interpretation: Normal - General General appearance: Anxious In distress: Mild - HEENT Head: Normocephalic Eyes: Normal Conjunctiva: Normal Ears: Normal Nasal: Normal Mouth/Lips: Normal Mucous membranes: Normal - Respiratory Respiratory status: No respiratory distress - Cardiovascular Rhythm: Regular - Abdominal Inspection: Normal - Extremities General upper extremity: Normal inspection General lower extremity: Normal inspection - Neurological Neuro grossly intact: Yes Cognition: Normal Orientation: AAOx4 - Psychological Associated symptoms: Agitated, Anxious - Skin Skin Temperature: Warm Skin Moisture: Dry Skin Color: Normal Skin Turgor: Elastic Course - Vital Signs Vital signs: Temp Pulse Resp BP Pulse Ox 98.4 F 95 20 95 07/15/17 18:36 07/15/17 18:36 07/15/17 18:36 07/15/17 18:36 Doctor's Discharge - Discharge Clinical Impression: Chronic pain Qualifiers: Chronic pain type: other chronic pain Qualified Code(s): G89.29 - Other chronic pain Condition: Stable Disposition: HOME, SELF-CARE Instructions: Abdominal Pain ([facility]), Chronic Pain Control ([facility]) Additional Instructions: TOMORROW (THURSDAY) MORNING, CALL YOUR CARE PROVIDER FOR CONTINUING MANAGEMENT OF YOUR CHRONIC PAIN. NO MORE PAIN MEDS CAN BE GIVEN TO YOU FROM THIS EMERGENCY DEPARTMENT.
[2017-07-15] MEDS ORDERED: CLONIDINE HCL 0.2 MG TABLET PO ONE (21:10)
[2017-07-15] MEDS ORDERED: OXYCODONE-ACETAMINOPHEN 5-325 MG TABLET PO ONE (21:24)
[2017-07-15 23:51] VITALS: BP 105/53
== END 2017-07-15 21:30 | disposition home or self-care (01) ==
LOC: ER 18:32
DX: R10.9 Unspecified abdominal pain (principal); G89.29 Other chronic pain
CPT/HCPCS: 99283; 96374; 96375; J1170; J2405